=== PATIENT | female | born 1940 | race Caucasian/White ===

== ENCOUNTER 2017-06-27 10:23 | Inpatient (IN) ==
[2017-06-27 11:42] LABS: Basophils % 0.2 % (0.0-0.8); Hemoglobin 14.5 GM/DL (12.0-16.0); Immature Granulocytes % 1.1 %; Lymphocytes # 1.2 10*3/uL (1.4-4.0); Lymphocytes % 6.8 % (21.3-54.2); Mean Corpuscular HGB Conc 33.7 GM/DL (32-36); Mean Corpuscular Hemoglobin 31 PG (27-34); Mean Corpuscular Volume 91.5 FL (87-102); Mean Platelet Volume 10.5 FL (9.6-12.0); Monocytes # 0.9 10*3/uL (0.11-0.8); Monocytes % 5.2 % (1.7-12.7); Neutrophils # 15.1 10*3/uL (1.4-7.4); Neutrophils % 86.7 % (38.7-73.9); Platelet Count 194 T/CUMM (130-400); Red Cell Distribution Width 13.2 % (9.3-17.3); White Blood Count 17.5 T/CUMM (4-12)
[2017-06-27 11:48] LABS: Apearance,Urine CLEAR (Clear); Bacteria,Urine Occasional /HPF (Few); Bilirubin,Urine Negative (Negative); Blood, Urine Negative (Negative); Glucose,Urine (UA) Negative (Negative); Ketones,Urine Negative (Negative); Mucus,Urine Occasional /LPF (Occasional); Nitrite,Urine Negative (Negative); Protein,Urine 30 MG/DL; RBC,Urine 2 /HPF (0-4); Squamous Epithelial Cell,Urine Occasional /HPF (0-10); Urine Color Yellow (Yellow); Urine Specific Gravity 1.016 (1.001-1.035); WBC,Urine <1 /HPF (0-6)
[2017-06-27 11:53] LABS: Albumin 3.5 G/DL (3.4-5.0); Bilirubin,Total 1.1 MG/DL (0.2-1.0); Calcium 9.1 MG/DL (8.5-10.1); Potassium 4.2 MMOL/L (3.5-5.1); Total Protein 7.7 G/DL (6.4-8.3)
--- NOTE | 2017-06-27 12:03 | CT Report ---
CT head/brain wo con Indication: Mental status changes Comparison: None Technique: Multiple axial tomographic images of the brain were obtained without the use of intravenous contrast. Findings: Midline structures are nondisplaced. There is no convincing evidence of acute intracranial hemorrhage . Moderate global volume loss present. Mild periventricular and subcortical hypoattenuation noted which is nonspecific but consistent with chronic microvascular ischemic change. Demyelinating process and vasculitis less likely considerations. Atherosclerotic calcifications demonstrated. The visualized paranasal sinuses and bilateral mastoid air cells are predominantly clear. IMPRESSION: No acute intracranial abnormality demonstrated. The CT exam was performed using one or more of the following dose reduction techniques: Automated exposure control, adjustment of the mA and/or kV according to patient size, or use of iterative reconstruction technique. PROCEDURE INTERPRETED AT [facility] DEPARTMENT OF RADIOLOGY Final Report Signed by: Dr William Padilla
--- NOTE | 2017-06-27 12:07 | EKG Report ---
Stationary ECG Study [facility] ER Test Date: 06/27/2017 12:05:17 PM Pat Name: DEBRA CELAYA Department: Room: Gender: F Sod Farmer: : 1940 Requested by: Tristan Aguiar Order Number: [id number] Reading MD: LENNY RUSSELL Intervals [place] Rate: 74 P: 999 NC: 0 QRS: 67 QRSD: 72 T: -3 QT: 354 QTc: 382 Interpretive Statements ATRIAL FIBRILLATION WITH ABERRANT CONDUCTION OR VENTRICULAR PREMATURE COMPLEXES LOW QRS VOLTAGE IN PRECORDIAL LEADS Electronically Signed On 06-27-17 13:13:59 CDT by LENNY RUSSELL [email or web address]
--- NOTE | 2017-06-27 12:14 | XRay Report ---
XR chest 1V portable Indication: Altered mental status Comparison: Chest x-ray dated January 11, 2014 Technique: Single frontal view of the chest. Findings: The cardiomediastinal silhouette is stable in configuration. Chronic change of the lungs without focal consolidation, pleural effusion, or pneumothorax. Visualized osseous and surrounding soft tissue structures appear grossly unchanged. IMPRESSION: Stable chest x-ray without acute cardiopulmonary process demonstrated. PROCEDURE INTERPRETED AT [facility] DEPARTMENT OF RADIOLOGY Final Report Signed by: Dr William Padilla
[2017-06-27 13:13] LABS: Allen Test Positive; Pt O2 Delivery Device Room Air
[2017-06-27 13:14] LABS: ABG Base Excess 0.9 MMOL/L (-2.5-2.5); ABG HCO3 25.1 MMOL/L (20-26); ABG Oxygen Saturation 92.1 % (95-100); ABG PCO2 31.4 MM HG (35-48); ABG PH 7.482 (7.35-7.45); ABG PO2 61.3 MM HG (80-95); ABG TCO2 20.4 MMOL/L (23-27)
[2017-06-27 14:05] LABS: Barbiturates Screen,Urine Negative (Negative); Benzodiazepines Screen,Urine Positive (Negative); Cannabinoid Screen,Urine Negative (Negative); Opiate Screen,Urine Negative (Negative); Phencyclidine Screen,Urine Negative (Negative)
[2017-06-27] MEDS ORDERED: VANCOMYCIN INJ 1,000 MG in SODIUM CHLORIDE 0.9% 250 ML IV STA (14:46)
--- NOTE | 2017-06-27 14:51 | Emergency Department Note ---
Rojelio Martell Manpreet, am scribing for, and in the presence of, Tristan Aguiar Jr., MD 11:36. Stefania Martell Marvin Jr., MD, personally performed the services described in this documentation, ascribed by Ruben Serrato in my presence, and it is both accurate and complete 451 . Arrival - Arrival Chief Complaint: Altered Mental Status Stated Complaint: fever ED Nursing Triage Note: Altered mental status and fever - family states that she has a HX of dementia - max temp 103 last night - Mode of Arrival: Wheelchair Limitations: No Limitations Source: Significant other () - History of Present Illness HPI Narrative: Pt is a 76 y/o female, with PMHx of HTN, dementia, and GERD, who presents to the ED with CC of fever and AMS. Pt had recorded a temperature of 103 F last night and the states the pt's mental status is worse than her baseline. Pt is also lethargic and coughing according to the . Pt has had issues with fever for the past 2 to 3 months and has been seeing Dr. Sorensen, who is her PCP. Her fever has been steady but worsen yesterday and last night. Pt has been gasping according to the . Pt had a bruise on her left leg that occurred last night and the states she did not hit anything. No other pains/ complaints reported to the ED. Onset (ago): day(s) Consistency: constant Severity: moderate Severity scale (1-10): 3 Date of Last Menstrual Period: hyster Allergies/Adverse Reactions: Allergies Allergy/AdvReac Type Severity Reaction Status Date / Time No Known Allergies Allergy Verified 07/24/15 17:00 Home Medications: Home Medications Medication Instructions Recorded Confirmed Type Atorvastatin [Lipitor] 20 mg PO DAILY 11/24/15 11/28/15 History Calcium Carbonate/Vitamin D3 1 tablet PO DAILY 11/24/15 11/28/15 History [Calcium 250+D Tablet] Memantine HCl [Namenda XR] 28 mg PO DAILY 11/24/15 11/28/15 History Metoprolol Tartrate 25 mg PO DAILY 11/24/15 11/28/15 History Omeprazole 1 tablet PO DAILY 11/24/15 11/28/15 History Oxybutynin Xl [Ditropan Xl] 10 mg PO DAILY 11/24/15 11/28/15 History Gabapentin Cap/Tab [Neurontin 200 mg PO BID@0900,1600 #120 12/08/15 Rx Cap/Tab] capsule Gabapentin Cap/Tab [Neurontin 300 mg PO BEDTIME #30 capsule 12/08/15 Rx Cap/Tab] Lisinopril [Prinivil] 10 mg PO BEDTIME #30 tablet 12/08/15 Rx QUEtiapine [SEROquel] 50 mg PO BEDTIME #60 tablet 12/08/15 Rx Zaleplon [Sonata] 5 mg PO BEDTIME PRN #30 capsule 12/08/15 Rx Review of System - Review of System 12 point system: reviewed and no additional remarkable complaints except as stated - Review of System Constitutional: Present: fever, other (Lethargic). Absent: chills, diaphoresis Head/Ears/Nose/Throat: Absent: sore throat Respiratory: Present: cough, respiratory distress. Absent: wheezing Cardiovascular: Absent: chest pain Gastrointestinal: Absent: abdominal pain, nausea, vomiting, diarrhea Genitourinary female: Absent: dysuria Musculoskeletal: Absent: back pain, neck pain Skin: Present: other (Warm) Neurological: Present: confusion. Absent: headache, weakness, numbness, paresthesias Medical,Surgical,& Family Hx - Medical History Cardio: History of: Cardiac Dysrhythmia, Hypertension, Cardiovascular Problems ( HX OF AFIB) No history of: Aneurysm, Cerebrovascular Disease, Congenital Heart Disease, CHF, CAD, [place], Pacemaker, PVD, Valvular Heart Disease Psychological: History of: Anxiety Disorders, Behavior Problems (highly anxious or restless unable to sit still or hyperactive), Depression, Psychiatric/ Substance Abuse Tx, Violent Behavior (combative behavior toward others.), Psychiatric Problems (depressed mood aeb frequent crying spells and sleep disturbance) No history of: ADHD, Bipolar Disorder, Previous Suicide Attempt, Schizophrenia Neurology: History of: Dementia, Vertigo No history of: Brain Aneurysm, Cerebral Hemorrhage, Cerebrovascular Accident , Cerebral Palsy, Migraine, Multiple Sclerosis, Parkinson's Disease, Peripheral Neuropathy, Seizures, TIA, Neurologocal Cancer HEENT: History of: Eye Problem No history of: Ear Problem, Dental Problems, Glaucoma, Oral Cancer, HEENT Problems Endocrine: No history of: Adrenal Disease, Diabetes Mellitus (IDDM), Diabetes Mellitus ( NIDDM), Dyslipidemia, Thyroid Disorder, Endocrine Cancer, Endocrine Problems Rheumatology: No history of;: Fibromyalgia, Myasthenia Gravis, Psoriasis, Rheumatoid Arthritis, Sjogrens, Systemic Lupus Erythematosus, Rheumatological Problems Respiratory: No history of: Asthma, Bronchitis, COPD, Intubation, Obstructive Sleep Apnea , Pulmonary Embolism, Pulmonary Hypertension, Pneumonia, Lung Cancer, Respiratory Problems Renal: No history of: Renal (Kidney) Cancer, Dialysis, Renal Failure, Renal Problems Genitourinary: History of: Kidney Stones No history of: Bladder Problem, Recurring Urinary Tract Infections, Genitourinary Cancer, Problems Gastrointestinal: History of: GERD, Hemorrhoids No history of: Bowel Obstruction, Clostridium Difficile, Crohn's Disease, Diverticulitis/ Diverticulosis, Esophageal Varices, Gastrointestinal Bleed, Hematochezia, Hepatitis, Liver Problems, Pancreatitis, Polyps, Ulcerative Colitis, Gastrointestinal Cancer, GI Problems Musculoskeletal: History of: Back/Neck Problems, Degenerative Disk Disease, Herniated Disk, Osteoporosis, Musculoskeletal Problems No history of: Amputation, Musculoskeletal Cancer Hematology: No history of: Anemia, Blood Transfusion Reaction, Bleeding Problems, Clotting Problems, Sickle Cell Disease, Hematologic Cancer, Blood Disorders Reproductive: No history of: Abnormal Pap Smear, Breast Cancer, Endometriosis, Ectopic , Ovarian Cysts, Complication, Sexually Transmitted Disorders , Reproductive Cancer, Reproductive Problems Other: No history of: Anesthesia Reactions, Anaphylaxis, Cancer, Eczema, HIV, Malignant Hyperthermia, MRSA, Vancomycin-Resistant Enterococci, Skin Problems, Miscellaneous Medical Problems - Surgical History Cardiac Surgeries: Patient Denies: Femoral-Popliteal Bypass Graft, Cardiac Catheterization, Cardiac Surgery, Carotid Endarterectomy, Internal Defibrillator, Vascular Access Devices Thoracic Surgeries: Patient denies;: Kidney (Renal Surgery), Lithotripsy, Nephrectomy, Organ Transplant, Lobectomy Neurologic Surgeries: Patient denies: Brain Aneurysm, Cerebral Hemorrhage, Neurologic Surgery HEENT Surgeries: Surgical HX of: Eye Surgery (cataract removal) Patient denies: Carotid Endarterectomy, Thyroid Surgery, Tonsilectomy & Adenoidectomy Abdominal Surgeries: Surgical HX of: Cholecystectomy Patient denies: Abdominal Surgery, Appendectomy, Colonoscopy, Gastric Bypass Surgery, EGD, Hernia Repair, Splenectomy Reproductive Surgeries: Surgical HX of;: Gynecologic Surgery, Hysterectomy Patient denies;: Breast Surgery, Section, Cystoscopy, Dilation and Curettage, Genitourinary Surgery, Tubal Ligation Orthopedic Surgeries: Surgical HX of;: Orthopedic Surgery (back surgery), Spinal Surgery Patient denies;: Implanted Devices, Total Hip Replacement, Total Knee Replacement - Family History Family History: Reports;: Family Cancer (maternal grandfather), Family Heart Disease (father (36 years old)) Denies;: Family Anesthesia Reaction, Family Diabetes, Family Hypertension, Family Psychiatric Problems, Family Stroke - Social History Smoking Status: Smoker, status unknown Frequency of Alcohol Use: None Type of Drug Use: None Exam Physical Examination: General: Well-developed well-nourished, no apparent distress. Patient anxious Head: Normocephalic, atraumatic. Eyes: PERRLA, EOMI. Nose: No obvious acute deformities or discharge. Mouth: No obvious acute injury. Neck: Full range of motion without obvious pain. No midline tender to palpation. Lymphatic: no significant lymphadenopathy noted. Lungs: Clear to auscultation bilaterally, normal and equal air movement bilaterally, no obvious rales or wheezing. Heart: regular rate and rhythm, no obvious mummers. Abdomen: Soft nontender, nondistended, normal active bowel sounds. Skin: Redness, possible early bruising noted on bilateral anterior lower legs. Left worse than right. Musculoskeletal: No gross deformities. Neurological: No focal findings, cranial nerves II through XII grossly normal. Psychiatric: Anxious Vital Signs: Vital Signs Temperature 101.9 F H 06/27/17 10:35 Pulse Rate 80 06/27/17 10:35 Respiratory Rate 20 06/27/17 10:35 Blood Pressure 122/70 06/27/17 10:35 O2 Sat by Pulse Oximetry 94 L 06/27/17 10:35 Course Course Narrative: Differential diagnosis, sepsis, urinary tract infection, pneumonia, says patient is DNR. Her mental status and fever is much worse than her baseline. - Reevaluation(s) Reevaluation #1: Unchanged, states patient is DNR, I am concerned about the fever and elevated white count without clear obvious reason for an infection. She had an epidural injection for pain 3 days ago which is of particular concern. Will discuss with the hospitalist for admission. Time: 14:45 Results - Labs CBC & BMP: 06/27/17 11:03 06/27/17 11:03 Lab Results: I have reviewed the patients labs Labs: Laboratory Tests 06/27/17 06/27/17 06/27/17 11:03 11:03 11:03 WBC 17.5 H RBC 4.70 Hgb 14.5 Hct 43.0 MCV 91.5 MCH 31 MCHC 33.7 RDW 13.2 Plt Count 194 MPV 10.5 Neut % (Auto) 86.7 H Lymph % (Auto) 6.8 L [place] % (Auto) 5.2 Eos % (Auto) 0.0 Baso % (Auto) 0.2 Neut # (Auto) 15.1 H Lymph # (Auto) 1.2 L [place] # (Auto) 0.9 H Eos # (Auto) 0.0 Baso # (Auto) 0.0 Immature Gran % 1.1 Nucleated RBC % 0.0 Immature Gran # 0.20 Nucleated RBCs # 0.00 Immature Plt Fraction 0.0 Sodium 136 Potassium 4.2 Chloride 103 Carbon Dioxide 26 Anion Gap 11.2 BUN 18 Creatinine 0.90 GFR Calculation 62 BUN/Creatinine Ratio 20.00 Glucose 97 POC Glucose Calculated Osmolality 273.0 Calcium 9.1 Total Bilirubin 1.10 H AST 33 ALT 18 Alkaline Phosphatase 117 Total Protein 7.7 Albumin 3.5 Globulin 4.2 H Albumin/Globulin Ratio 0.8 L Urine Color Yellow Urine Appearance Clear Urine pH 5.0 Ur Specific [place] 1.016 Urine Protein 30 Urine Glucose (UA) Negative Urine Ketones Negative Urine Blood Negative Urine Nitrate Negative Urine Bilirubin Negative Urine Urobilinogen 2.0 H Urine Leukocytes Negative Urine RBC 2 Urine WBC <1 Ur Squamous Epith Cells Occasional Urine Bacteria Occasional Urine Mucus Occasional Ur Culture Indicated? Not indicated Laboratory Tests 06/27/17 11:51 POC Glucose 89 Laboratory Tests 06/27/17 13:01 ABG pH 7.482 H ABG pCO2 31.4 L ABG pO2 61.3 L ABG HCO3 25.1 ABG Total CO2 20.4 L ABG O2 Saturation 92.1 L ABG Base Excess 0.9 FiO2 21.00 - EKG EKG results: interpreted by ERMD (Poor quality EKG, heart rate 74, narrow complex QRS complexes, no obvious P waves with irregular R to R interval's. Consistent with atrial fibrillation that is rate controlled.) - Diagnostic Findings Procedure: Chest x-ray: report reviewed by me, image reviewed by me (Stable chest x-ray without acute cardiopulmonary process demonstrated.), CT: report reviewed by me, image reviewed by me (CT head/brain w/o con: No acute intracranial abnormality demonstrated.) Disposition Clinical Impression: Altered mental status, Febrile illness, Status post epidural steroid injection Case discussed with: patient, patient's family Disposition: Still a Patient Condition: Stable Time of Disposition: 14:44
[2017-06-27] MEDS ORDERED: VANCOMYCIN 1,000 MG VIAL ONE ×2 (15:05→15:15)
[2017-06-27] MEDS ORDERED: SODIUM CHLORIDE 0.9% 1,000 ML IV ONE (15:46)
--- NOTE | 2017-06-27 15:56 | Inventional Radiology Consult ---
Assessment and Plan - Time spent with patient Time spent with patient: Less than 30 minutes (1) Mental status change Problem details: fever, leukocytosis and recent spine intervention are concerning for meningitis Status: Chronic Assessment and plan: lumbar puncture planned for today Current Visit: No IR Consult - Data of Consult Patient: new to practice Consult date: 06/27/17 Requesting Physician: Sandra Jaime - Consult Narrative Reason for consult: febrile with leukocytosis and confusion History of present illness: Favian is a 76 year old F Admitted with significantly worsening confusion over the past 24 hours. Patient is also febrile. No reported headache although the patient does have some dementia and confusion at baseline. Patient caregiver/ reports that she is significantly worsened in the last 24 hours. Patient also has a history of restless leg syndrome and does not do activities of daily living without assistance. No history of anticoagulation use or aspirin. Request is for lumbar puncture for further evaluation. - Home Medications and Allergies Home Medications: Home Medications Medication Instructions Recorded Confirmed Type Atorvastatin [Lipitor] 20 mg PO DAILY 11/24/15 11/28/15 History Calcium Carbonate/Vitamin D3 1 tablet PO DAILY 11/24/15 11/28/15 History [Calcium 250+D Tablet] Memantine HCl [Namenda XR] 28 mg PO DAILY 11/24/15 11/28/15 History Metoprolol Tartrate 25 mg PO DAILY 11/24/15 11/28/15 History Omeprazole 1 tablet PO DAILY 11/24/15 11/28/15 History Oxybutynin Xl [Ditropan Xl] 10 mg PO DAILY 11/24/15 11/28/15 History Gabapentin Cap/Tab [Neurontin 200 mg PO BID@0900,1600 #120 12/08/15 Rx Cap/Tab] capsule Gabapentin Cap/Tab [Neurontin 300 mg PO BEDTIME #30 capsule 12/08/15 Rx Cap/Tab] Lisinopril [Prinivil] 10 mg PO BEDTIME #30 tablet 12/08/15 Rx QUEtiapine [SEROquel] 50 mg PO BEDTIME #60 tablet 12/08/15 Rx Zaleplon [Sonata] 5 mg PO BEDTIME PRN #30 capsule 12/08/15 Rx Allergies/Adverse Reactions: Allergies Allergy/AdvReac Type Severity Reaction Status Date / Time No Known Allergies Allergy Verified 07/24/15 17:00 ROS unobtainable: due to mental status, due to dementia, other (some hx obtained from ) Medical,Surgical,& Family Hx - Medical History Cardio: History of: Cardiac Dysrhythmia, Hypertension, Cardiovascular Problems ( HX OF AFIB) No history of: Aneurysm, Cerebrovascular Disease, Congenital Heart Disease, CHF, CAD, [place], Pacemaker, PVD, Valvular Heart Disease Psychological: History of: Anxiety Disorders, Behavior Problems (highly anxious or restless unable to sit still or hyperactive), Depression, Psychiatric/ Substance Abuse Tx, Violent Behavior (combative behavior toward others.), Psychiatric Problems (depressed mood aeb frequent crying spells and sleep disturbance) No history of: ADHD, Bipolar Disorder, Previous Suicide Attempt, Schizophrenia Neurology: History of: Dementia, Vertigo No history of: Brain Aneurysm, Cerebral Hemorrhage, Cerebrovascular Accident , Cerebral Palsy, Migraine, Multiple Sclerosis, Parkinson's Disease, Peripheral Neuropathy, Seizures, TIA, Neurologocal Cancer HEENT: History of: Eye Problem No history of: Ear Problem, Dental Problems, Glaucoma, Oral Cancer, HEENT Problems Endocrine: No history of: Adrenal Disease, Diabetes Mellitus (IDDM), Diabetes Mellitus ( NIDDM), Dyslipidemia, Thyroid Disorder, Endocrine Cancer, Endocrine Problems Rheumatology: No history of;: Fibromyalgia, Myasthenia Gravis, Psoriasis, Rheumatoid Arthritis, Sjogrens, Systemic Lupus Erythematosus, Rheumatological Problems Respiratory: No history of: Asthma, Bronchitis, COPD, Intubation, Obstructive Sleep Apnea , Pulmonary Embolism, Pulmonary Hypertension, Pneumonia, Lung Cancer, Respiratory Problems Renal: No history of: Renal (Kidney) Cancer, Dialysis, Renal Failure, Renal Problems Genitourinary: History of: Kidney Stones No history of: Bladder Problem, Recurring Urinary Tract Infections, Genitourinary Cancer, Problems Gastrointestinal: History of: GERD, Hemorrhoids No history of: Bowel Obstruction, Clostridium Difficile, Crohn's Disease, Diverticulitis/ Diverticulosis, Esophageal Varices, Gastrointestinal Bleed, Hematochezia, Hepatitis, Liver Problems, Pancreatitis, Polyps, Ulcerative Colitis, Gastrointestinal Cancer, GI Problems Musculoskeletal: History of: Back/Neck Problems, Degenerative Disk Disease, Herniated Disk, Osteoporosis, Musculoskeletal Problems No history of: Amputation, Musculoskeletal Cancer Hematology: No history of: Anemia, Blood Transfusion Reaction, Bleeding Problems, Clotting Problems, Sickle Cell Disease, Hematologic Cancer, Blood Disorders Reproductive: No history of: Abnormal Pap Smear, Breast Cancer, Endometriosis, Ectopic , Ovarian Cysts, Complication, Sexually Transmitted Disorders , Reproductive Cancer, Reproductive Problems Other: No history of: Anesthesia Reactions, Anaphylaxis, Cancer, Eczema, HIV, Malignant Hyperthermia, MRSA, Vancomycin-Resistant Enterococci, Skin Problems, Miscellaneous Medical Problems - Surgical History Cardiac Surgeries: Patient Denies: Femoral-Popliteal Bypass Graft, Cardiac Catheterization, Cardiac Surgery, Carotid Endarterectomy, Internal Defibrillator, Vascular Access Devices Thoracic Surgeries: Patient denies;: Kidney (Renal Surgery), Lithotripsy, Nephrectomy, Organ Transplant, Lobectomy Neurologic Surgeries: Patient denies: Brain Aneurysm, Cerebral Hemorrhage, Neurologic Surgery HEENT Surgeries: Surgical HX of: Eye Surgery (cataract removal) Patient denies: Carotid Endarterectomy, Thyroid Surgery, Tonsilectomy & Adenoidectomy Abdominal Surgeries: Surgical HX of: Cholecystectomy Patient denies: Abdominal Surgery, Appendectomy, Colonoscopy, Gastric Bypass Surgery, EGD, Hernia Repair, Splenectomy Reproductive Surgeries: Surgical HX of;: Gynecologic Surgery, Hysterectomy Patient denies;: Breast Surgery, Section, Cystoscopy, Dilation and Curettage, Genitourinary Surgery, Tubal Ligation Orthopedic Surgeries: Surgical HX of;: Orthopedic Surgery (back surgery), Spinal Surgery Patient denies;: Implanted Devices, Total Hip Replacement, Total Knee Replacement - Family History Family History: Reports;: Family Cancer (maternal grandfather), Family Heart Disease (father (36 years old)) Denies;: Family Anesthesia Reaction, Family Diabetes, Family Hypertension, Family Psychiatric Problems, Family Stroke - Social History Smoking Status: Smoker, status unknown Frequency of Alcohol Use: None Type of Drug Use: None Exam - Labs CBC & BMP: 06/27/17 11:03 06/27/17 11:03 Lab Results: I have reviewed the past 24 hour labs Image Studies: CT head negative - Constitutional Vitals: Period Temp Pulse Resp BP Sys/[place] Pulse Ox Last 24 Hr 101.9 F 80 20 122/70 94 General appearance: normal weight - Eye Eye exam: Present: EOMI - Respiratory Respiratory exam: Present: clear to auscultation bilaterally - Cardiovascular Cardiovascular exam: Present: regular rate and rhythm - Neurological Exam Neurological exam: Present: alert, altered, other (restless legs throughout interview) - Psychiatric Psychiatric exam: Present: agitated - Skin Skin exam: Present: normal color, dry
[2017-06-27] MEDS ORDERED: AMPICILLIN INJ 2,000 MG in SODIUM CHLORIDE 0.9% 100 ML IV STA (15:58)
[2017-06-27] MEDS ORDERED: VANCOMYCIN INJ 1,000 MG in SODIUM CHLORIDE 0.9% 250 ML IV SCH (16:00)
--- NOTE | 2017-06-27 16:05 | Hospitalist History & Physical ---
<Sandra Jaime Maura - Last Filed: 06/27/17 16:37> Assessment and Plan (1) Altered mental status Status: Acute Assessment and plan: Fever elevated white count and confusion may be secondary to meningitis. Repeat recent spinal injection. Spinal tap treat for meningitis with vancomycin , Rocephin, ampicillin Current Visit: Yes (2) Fever Status: Acute Assessment and plan: see AMS, no evidence of pneumonia or uti, blood cx pending. Cont vanco, amp and rocephin Current Visit: Yes (3) Septic shock Status: Acute Assessment and plan: Fluids bolus and stat lactic acid Current Visit: Yes (4) Shortness of breath Status: Acute Assessment and plan: chest ct and venous dopplers Current Visit: Yes (5) Leukocytosis Status: Acute Assessment and plan: secondary to steroids injection or infection, cover for infection see above Current Visit: Yes (6) Neuroleptic malignant syndrome Status: Acute Assessment and plan: on seroquel has many of the symptoms, Notified Dr. Treviño asking him to see her urgently for an opinion Current Visit: Yes (7) Dementia, Alzheimer's, with behavior disturbance Status: Acute Current Visit: No (8) Status post epidural steroid injection Status: Acute Current Visit: Yes History of Present Illness Chief complaint: fever and confusion History of present illness: Ms. Ballesteros is a 76 year old female with PMHx of HTN, dementia, and GERD, who presents to the ED with CC of fever and AMS. Pt had recorded a temperature of 103 F last night and the states the pt's mental status is worse than her baseline. WBC is 17 and she had an epidural injection on Friday by Dr Lora. Dr. Lora reports confused when he saw her but was not running fever and didnt look ill. Patient sees Dr. Garner. Given vanco in ER. I ordered fluids and a lactic acid with a stat spinal tap. Pt is also lethargic and coughing according to the . Oxygen is low, may be at risk for PE. Will get venous dopplers. Spoke with Dr. Castorena for stat spinal tap under sedation. able to answer some questions. Has rash on right leg but left leg warm and red with purpura due to recent trauma. Pt has restless leg but she has severe dyskinesia and is constantly moving. May be side affects from seroquel. Consider neuroleptic malignant syndrome. Has had multiple kyphoplasties in the past. Home Medications Medication Instructions Recorded Confirmed Type Atorvastatin [Lipitor] 20 mg PO DAILY 11/24/15 06/27/17 History Metoprolol Tartrate 25 mg PO DAILY 11/24/15 06/27/17 History Omeprazole 1 tablet PO DAILY 11/24/15 06/27/17 History Zaleplon [Sonata] 5 mg PO BEDTIME PRN #30 capsule 12/08/15 06/27/17 Rx Donepezil [Aricept] 10 mg PO DAILY 06/27/17 06/27/17 History Gabapentin Cap/Tab [Neurontin 400 mg PO TID 06/27/17 06/27/17 History Cap/Tab] Lisinopril 5 mg PO DAILY 06/27/17 06/27/17 History Loratadine Tab [Claritin Tab] 10 mg PO DAILY 06/27/17 06/27/17 History Oxybutynin Chloride [Oxybutynin 15 mg PO DAILY 06/27/17 06/27/17 History Chloride ER] Quetiapine Fumarate [Seroquel] 50 mg PO DAILY 06/27/17 06/27/17 History Allergies Allergy/AdvReac Type Severity Reaction Status Date / Time No Known Allergies Allergy Verified 07/24/15 17:00 Medical,Surgical,& Family Hx - Medical History Cardio: History of: Cardiac Dysrhythmia, Hypertension, Cardiovascular Problems ( HX OF AFIB) No history of: Aneurysm, Cerebrovascular Disease, Congenital Heart Disease, CHF, CAD, [place], Pacemaker, PVD, Valvular Heart Disease Psychological: History of: Anxiety Disorders, Behavior Problems (highly anxious or restless unable to sit still or hyperactive), Depression, Psychiatric/ Substance Abuse Tx, Violent Behavior (combative behavior toward others.), Psychiatric Problems (depressed mood aeb frequent crying spells and sleep disturbance) No history of: ADHD, Bipolar Disorder, Previous Suicide Attempt, Schizophrenia Neurology: History of: Dementia, Vertigo No history of: Brain Aneurysm, Cerebral Hemorrhage, Cerebrovascular Accident , Cerebral Palsy, Migraine, Multiple Sclerosis, Parkinson's Disease, Peripheral Neuropathy, Seizures, TIA, Neurologocal Cancer HEENT: History of: Eye Problem No history of: Ear Problem, Dental Problems, Glaucoma, Oral Cancer, HEENT Problems Endocrine: No history of: Adrenal Disease, Diabetes Mellitus (IDDM), Diabetes Mellitus ( NIDDM), Dyslipidemia, Thyroid Disorder, Endocrine Cancer, Endocrine Problems Rheumatology: No history of;: Fibromyalgia, Myasthenia Gravis, Psoriasis, Rheumatoid Arthritis, Sjogrens, Systemic Lupus Erythematosus, Rheumatological Problems Respiratory: No history of: Asthma, Bronchitis, COPD, Intubation, Obstructive Sleep Apnea , Pulmonary Embolism, Pulmonary Hypertension, Pneumonia, Lung Cancer, Respiratory Problems Renal: No history of: Renal (Kidney) Cancer, Dialysis, Renal Failure, Renal Problems Genitourinary: History of: Kidney Stones No history of: Bladder Problem, Recurring Urinary Tract Infections, Genitourinary Cancer, Problems Gastrointestinal: History of: GERD, Hemorrhoids No history of: Bowel Obstruction, Clostridium Difficile, Crohn's Disease, Diverticulitis/ Diverticulosis, Esophageal Varices, Gastrointestinal Bleed, Hematochezia, Hepatitis, Liver Problems, Pancreatitis, Polyps, Ulcerative Colitis, Gastrointestinal Cancer, GI Problems Musculoskeletal: History of: Back/Neck Problems, Degenerative Disk Disease, Herniated Disk, Osteoporosis, Musculoskeletal Problems No history of: Amputation, Musculoskeletal Cancer Hematology: No history of: Anemia, Blood Transfusion Reaction, Bleeding Problems, Clotting Problems, Sickle Cell Disease, Hematologic Cancer, Blood Disorders Reproductive: No history of: Abnormal Pap Smear, Breast Cancer, Endometriosis, Ectopic , Ovarian Cysts, Complication, Sexually Transmitted Disorders , Reproductive Cancer, Reproductive Problems Other: No history of: Anesthesia Reactions, Anaphylaxis, Cancer, Eczema, HIV, Malignant Hyperthermia, MRSA, Vancomycin-Resistant Enterococci, Skin Problems, Miscellaneous Medical Problems - Surgical History Cardiac Surgeries: Patient Denies: Femoral-Popliteal Bypass Graft, Cardiac Catheterization, Cardiac Surgery, Carotid Endarterectomy, Internal Defibrillator, Vascular Access Devices Thoracic Surgeries: Patient denies;: Kidney (Renal Surgery), Lithotripsy, Nephrectomy, Organ Transplant, Lobectomy Neurologic Surgeries: Patient denies: Brain Aneurysm, Cerebral Hemorrhage, Neurologic Surgery HEENT Surgeries: Surgical HX of: Eye Surgery (cataract removal) Patient denies: Carotid Endarterectomy, Thyroid Surgery, Tonsilectomy & Adenoidectomy Abdominal Surgeries: Surgical HX of: Cholecystectomy Patient denies: Abdominal Surgery, Appendectomy, Colonoscopy, Gastric Bypass Surgery, EGD, Hernia Repair, Splenectomy Reproductive Surgeries: Surgical HX of;: Gynecologic Surgery, Hysterectomy Patient denies;: Breast Surgery, Section, Cystoscopy, Dilation and Curettage, Genitourinary Surgery, Tubal Ligation Orthopedic Surgeries: Surgical HX of;: Orthopedic Surgery (back surgery), Spinal Surgery Patient denies;: Implanted Devices, Total Hip Replacement, Total Knee Replacement - Family History Family History: Reports;: Family Cancer (maternal grandfather), Family Heart Disease (father (36 years old)) Denies;: Family Anesthesia Reaction, Family Diabetes, Family Hypertension, Family Psychiatric Problems, Family Stroke - Social History Smoking Status: Former smoker Frequency of Alcohol Use: None Type of Drug Use: None Marital Status: Lives With:: Spouse Functional capacity: independent ambulation ROS unobtainable: due to mental status, due to delirium - Constitutional Constitutional: Present: fever(s). Absent: headache(s) - EENT Nose, mouth and throat: Absent: headache(s) - Neurological Neurological: Present: behavioral changes, confusion, other (dykinesia). Absent : focal weakness, headache(s), syncope - Psychiatric Psychiatric: Present: anxiety, confusion, depression. Absent: memory loss - Endocrine Endocrine: Present: fatigue, heat intolerance - Hematologic/Lymphatic Hematologic/Lymphatic: Present: easy bleeding, easy bruising Exam - Constitutional Vitals: Period Temp Pulse Resp BP Sys/Dawson Pulse Ox Last 24 Hr 101.9 F 80 20 122/70 94 General appearance: normal weight, severe distress - Head Head exam: Present: normal inspection, normocephalic - Eye Eye exam: Present: EOMI. Absent: scleral icterus Pupils: Present: ARIELLE, normal accommodation - Neck Neck exam: Absent: lymphadenopathy, thyromegaly - Respiratory Respiratory exam: Present: clear to auscultation bilaterally. Absent: rhonchi, wheezes - Cardiovascular Cardiovascular exam: Present: tachycardia - GI/Abdominal GI/Abdominal exam: Present: normal bowel sounds, soft. Absent: tenderness - Extremities Exam Extremities exam: Present: normal capillary refill, edema, other (bilateral LE erythema ) - Neurological Exam Neurological exam: Present: altered, motor sensory deficit (moving all extremities ) - Psychiatric Psychiatric exam: Present: depressed, flat affect - Skin Skin exam: Present: erythema, rash, urticaria Results - Labs CBC & BMP: 06/27/17 11:03 06/27/17 11:03 Lab Results: I have reviewed the past 24 hour labs - EKG EKG shows: atrial fibrillation - Diagnostic Findings Procedure: Chest x-ray: report reviewed by me (none ), CT: report reviewed by me (head volume loss ) <MoniqueAntoni - Last Filed: 06/27/17 18:40> - Constitutional Constitutional: Present: lethargy, weakness - EENT Eyes: Present: blurry vision. Absent: loss of vision Ears: Absent: decreased hearing - Cardiovascular Cardiovascular: Absent: chest pain at rest, chest pain with activity, diaphoresis, dyspnea, edema - Respiratory Respiratory: Absent: hemoptysis - Gastrointestinal Gastrointestinal: Present: constipation. Absent: change in bowel habits, coffee ground emesis, nausea, vomiting - Genitourinary Genitourinary: Absent: dysuria, hematuria Exam - Constitutional Vitals: Period Temp Pulse Resp BP Sys/Dawson Pulse Ox Last 24 Hr 99.8 F-101.9 F 67-97 16-29 122-145/50-85 92-100 Results - Labs CBC & BMP: 06/27/17 11:03 06/27/17 11:03
--- NOTE | 2017-06-27 16:39 | Post Interventional Procedure ---
Pre-op diagnosis: fever, confusion, leukocytosis Post-op diagnosis: same Procedure: Lumbar puncture Contrast: none Flouroscopy: less then 1 min Radiologist: Joshua Castorena Anesthesia: local Specimens: other Estimated blood loss: none Complications: none Condition: stable Description/Findings: opening pressure 21 cm H2O 10 mL clear colorless CSF removed Assessment and Plan - Time spent with patient Time spent with patient: Less than 30 minutes (1) Mental status change Problem details: fever, leukocytosis and recent spine intervention are concerning for meningitis Status: Chronic Assessment and plan: lumbar puncture planned for today Current Visit: No
--- NOTE | 2017-06-27 16:44 | Interventional Radiology Rpt ---
Procedure: IR lumbar puncture diagnostic Clinical history: 76-year-old female with confusion, fever and leukocytosis. Procedure: Informed consent was obtained prior to procedure. Formal timeout was performed. Maximum sterile barrier technique was employed. The patient was placed prone on the fluoroscopy table. The low back was prepped and draped in a sterile fashion. A midline lumbar puncture was then performed at the L3-L4 interspace using a 20-gauge spinal needle. Fluoroscopic guidance was used and a captured image documents the needle position. An opening pressure of 21 cm water was obtained. Subsequently, 10 milliliters of clear, colorless CSF was withdrawn and sent to laboratory. The spinal needle was removed and a bandage placed the puncture site. Fluoroscopy time: 0.9 minutes. Consultations: None. Impression: Technically successful diagnostic lumbar puncture as described. PROCEDURE INTERPRETED AT [facility] DEPARTMENT OF RADIOLOGY Final Report Signed by: Joshua Castorena
--- NOTE | 2017-06-27 16:52 | CT Report ---
CT chest PE study Indication: Shortness of breath. CT CHEST WITH CONTRAST, PE PROTOCOL DLP: 375 mGy*cm. One or more of the following dose reduction techniques was used: Automated exposure control, adjustment of the mA and/or kV according the patient size, or use of iterative reconstruction techniques. Comparison: None Technique: Axial CT images of the chest were obtained during the pulmonary arterial phase of contrast injection. Coronal reconstructions were provided. Omnipaque 350, 80 cc. Findings: No central, lobar or segmental pulmonary artery filling defects are shown. There is a small amount of methylmethacrylate cement within the right lower lobe pulmonary artery from prior vertebroplasty. Heart size is normal. Mild atheromatous disease noted. Aorta is normal in size without dissection. No mediastinal, axillary or hilar lymphadenopathy. Relatively large hiatal hernia is noted. Breathing motion artifact obscures pulmonary findings significantly. However, no consolidative mass or infiltrate is shown. There are some scarring or atelectasis of the left lung base. Pleural spaces are clear. Spondylitic changes thoracic spine noted. Limited views of the upper abdomen are grossly unremarkable. Impression: No evidence of PE. Hiatal hernia. PROCEDURE INTERPRETED AT [facility] DEPARTMENT OF RADIOLOGY Final Report Signed by: David Quezada M.D.
[2017-06-27 16:55] LABS: Glucose,CSF 54 MG/DL (40-70)
[2017-06-27 17:05] LABS: Appearance,CSF Clear; Red Blood Cell,CSF 17 C/CUMM; White Blood Cell,CSF 8 C/CUMM
--- NOTE | 2017-06-27 17:19 | Ultrasound Report ---
US venous doppler LE BI Indication: Leg swelling. BILATERAL LOWER EXTREMITY VENOUS ULTRASOUND Comparison: None Findings: Graded grayscale compression, color Doppler and pulsed Doppler ultrasound evaluation of the venous structures performed. Normal compressibility, augmentation and color saturation is present within bilateral common femoral, superficial femoral, popliteal and proximal greater saphenous veins. Impression: No evidence of DVT either lower extremity. PROCEDURE INTERPRETED AT [facility] DEPARTMENT OF RADIOLOGY Final Report Signed by: David Quezada M.D.
[2017-06-27] MEDS ORDERED: GABAPENTIN 100 MG CAPSULE PO SCH (17:42)
[2017-06-27] MEDS ORDERED: SODIUM CHLORIDE 0.9% 1,850 ML IV ONE (17:42)
[2017-06-27] MEDS ORDERED: ONDANSETRON 4 MG/2 ML VIAL IV PRN (17:42)
[2017-06-27] MEDS ORDERED: NOREPINEPHRINE 8 MG in SODIUM CHLORIDE 0.9% 242 ML IV SCH (17:42)
[2017-06-27] MEDS ORDERED: ACETAMINOPHEN 325 MG TABLET PO PRN (17:42)
[2017-06-27 18:27] LABS: Lymphocytes,CSF 82 %; Monocytes,CSF 14 %; Neutrophils,CSF 5 %
[2017-06-27 18:41] LABS: Magnesium 1.9 MG/DL (1.8-2.4)
[2017-06-27 18:50] LABS: Lactic Acid 2.2 MMOL/L (0.4-2.0)
[2017-06-27] MEDS: VANCOMYCIN INJ 1,000 MG in SODIUM CHLORIDE 0.9% 250 ML IV SCH (18:58)
[2017-06-27] MEDS: cefTRIAXone 2,000 MG in SODIUM CHLORIDE 0.9% 100 ML IV SCH (18:59)
[2017-06-27] MEDS ORDERED: ALBUTEROL/IPRATROPIUM 3 ML NEB RESP TX SCH (19:00)
[2017-06-27] MEDS: AMPICILLIN INJ 2,000 MG in SODIUM CHLORIDE 0.9% 100 ML IV SCH ×2 (19:27→21:51)
[2017-06-27] MEDS: SODIUM CHLORIDE 0.9% 1,000 ML IV SCH (20:08)
[2017-06-27] MEDS: LORazepam 2 MG/1 ML VIAL IV PRN (20:12)
[2017-06-27] MEDS: ALBUTEROL/IPRATROPIUM 3 ML NEB RESP TX SCH (20:18)
[2017-06-27] MEDS: ACYCLOVIR INJ 750 MG in SODIUM CHLORIDE 0.9% 250 ML IV SCH (20:51)
[2017-06-27] MEDS ORDERED: GABAPENTIN 300 MG CAPSULE PO SCH (21:00)
[2017-06-27] MEDS: HYDROmorphone 2 MG/1 ML VIAL IV PRN (22:16)
[2017-06-27] MEDS ORDERED: DILTIAZEM 100 MG VIAL.ADD IV ONE (22:44)
[2017-06-27] MEDS ORDERED: DILTIAZEM 50 MG/10 ML VIAL IV ONE ×2 (22:44→23:00)
[2017-06-27] MEDS ORDERED: SODIUM CHLORIDE 0.9% 500 ML IV ONE (23:02)
[2017-06-27] MEDS ORDERED: MAGNESIUM SULF RIDER 2 GM in PREMIX 1 EACH IV ONE (23:03)
[2017-06-27] MEDS: DILTIAZEM INJ 100 MG in SODIUM CHLORIDE 0.9% 100 ML IV SCH (23:05)
[2017-06-28] MEDS ORDERED: ACETAMINOPHEN 325 MG SUPP RECTAL PRN (00:14)
[2017-06-28] MEDS ORDERED: ACETAMINOPHEN 650 MG SUPP RECTAL PRN (00:22)
[2017-06-28] MEDS: LORazepam 2 MG/1 ML VIAL IV PRN ×5 (00:44→19:42)
[2017-06-28] MEDS: AMPICILLIN INJ 2,000 MG in SODIUM CHLORIDE 0.9% 100 ML IV SCH ×6 (01:23→22:24)
[2017-06-28] MEDS: SODIUM CHLORIDE 0.9% 1,000 ML IV SCH ×4 (03:47→21:48)
[2017-06-28] MEDS: ACYCLOVIR INJ 750 MG in SODIUM CHLORIDE 0.9% 250 ML IV SCH ×3 (04:00→20:16)
[2017-06-28] MEDS: cefTRIAXone 2,000 MG in SODIUM CHLORIDE 0.9% 100 ML IV SCH ×2 (05:34→18:36)
[2017-06-28 05:56] LABS: Basophils # 0.1 10*3/uL (0.0-0.2); Basophils % 0.3 % (0.0-0.8); Hematocrit 36.5 VOL% (35.7-47.0); Hemoglobin 11.8 GM/DL (12.0-16.0); Immature Granulocytes % 1.2 %; Immature Granulocytes Absolute 0.24 #; Lymphocytes # 1.2 10*3/uL (1.4-4.0); Lymphocytes % 5.9 % (21.3-54.2); Mean Corpuscular HGB Conc 32.3 GM/DL (32-36); Mean Corpuscular Hemoglobin 31 PG (27-34); Mean Corpuscular Volume 94.8 FL (87-102); Mean Platelet Volume 10.3 FL (9.6-12.0); Monocytes # 0.9 10*3/uL (0.11-0.8); Monocytes % 4.5 % (1.7-12.7); Neutrophils # 17.5 10*3/uL (1.4-7.4); Neutrophils % 88.1 % (38.7-73.9); Platelet Count 138 T/CUMM (130-400); Red Blood Count 3.85 MC/CUMM (3.8-5.5); Red Cell Distribution Width 13.7 % (9.3-17.3); White Blood Count 19.9 T/CUMM (4-12)
[2017-06-28] MEDS: VANCOMYCIN INJ 1,000 MG in SODIUM CHLORIDE 0.9% 250 ML IV SCH ×2 (06:08→18:11)
[2017-06-28 06:25] LABS: Calcium 7.5 MG/DL (8.5-10.1); Potassium 3.4 MMOL/L (3.5-5.1)
[2017-06-28 06:27] LABS: Hypochromasia Slight
[2017-06-28 06:28] LABS: Microcytosis Slight; Platelet Estimate Adequate
[2017-06-28] MEDS: HYDROmorphone 2 MG/1 ML VIAL IV PRN ×4 (06:29→20:30)
[2017-06-28] MEDS: ALBUTEROL/IPRATROPIUM 3 ML NEB RESP TX SCH ×3 (07:09→19:12)
[2017-06-28] MEDS: MEMANTINE 10 MG TABLET PO SCH ×2 (09:04→20:14)
[2017-06-28] MEDS: PANTOPRAZOLE 40 MG TABLET PO SCH (09:04)
[2017-06-28] MEDS: DILTIAZEM INJ 100 MG in SODIUM CHLORIDE 0.9% 100 ML IV SCH ×3 (12:48→23:41)
--- NOTE | 2017-06-28 13:47 | Neurology Consult Note ---
History of Present Illness History of present illness: Patient is unable to provide me any history. History basically obtained from the chart. Ms. Ballesteros is a 76 year old female with PMHx of HTN, dementia, and GERD, who presents to the ED with fever and change in mental state. Pt had recorded a temperature of 103 F last night and the reported that pt's mental status is worse than her baseline. she had an epidural injection on Friday by Dr Lora. Dr. Lora reports confused when he saw her but was not running fever and didnt look ill. Pt was also lethargic and coughing according to the . Patient underwent CT of the chest and venous Dopplers legs which are unremarkable for any pathology. A spinal tap was done which is unremarkable. Pt is quite restless and constantly moving. CPK level is 206, AST ALT levels are all within normal limits. No clear evidence of enemas either. No evidence of meningitis. Home Medications Medication Instructions Recorded Confirmed Type Atorvastatin [Lipitor] 20 mg PO DAILY 11/24/15 06/27/17 History Metoprolol Tartrate 25 mg PO DAILY 11/24/15 06/27/17 History Omeprazole 1 tablet PO DAILY 11/24/15 06/27/17 History Zaleplon [Sonata] 5 mg PO BEDTIME PRN #30 capsule 12/08/15 06/27/17 Rx Donepezil [Aricept] 10 mg PO DAILY 06/27/17 06/27/17 History Gabapentin Cap/Tab [Neurontin 400 mg PO TID 06/27/17 06/27/17 History Cap/Tab] Lisinopril 5 mg PO DAILY 06/27/17 06/27/17 History Loratadine Tab [Claritin Tab] 10 mg PO DAILY 06/27/17 06/27/17 History Oxybutynin Chloride [Oxybutynin 15 mg PO DAILY 06/27/17 06/27/17 History Chloride ER] Quetiapine Fumarate [Seroquel] 50 mg PO DAILY 06/27/17 06/27/17 History Allergies Allergy/AdvReac Type Severity Reaction Status Date / Time No Known Allergies Allergy Verified 07/24/15 17:00 ROS unobtainable: due to mental status Medical,Surgical,& Family Hx - Medical History Cardio: History of: Cardiac Dysrhythmia, Hypertension, Cardiovascular Problems ( HX OF AFIB) No history of: Aneurysm, Cerebrovascular Disease, Congenital Heart Disease, CHF, CAD, [place], Pacemaker, PVD, Valvular Heart Disease Psychological: History of: Anxiety Disorders, Behavior Problems (highly anxious or restless unable to sit still or hyperactive), Depression, Psychiatric/ Substance Abuse Tx, Violent Behavior (combative behavior toward others.), Psychiatric Problems (depressed mood aeb frequent crying spells and sleep disturbance) No history of: ADHD, Bipolar Disorder, Previous Suicide Attempt, Schizophrenia Neurology: History of: Dementia, Vertigo No history of: Brain Aneurysm, Cerebral Hemorrhage, Cerebrovascular Accident , Cerebral Palsy, Migraine, Multiple Sclerosis, Parkinson's Disease, Peripheral Neuropathy, Seizures, TIA, Neurologocal Cancer HEENT: History of: Eye Problem No history of: Ear Problem, Dental Problems, Glaucoma, Oral Cancer, HEENT Problems Endocrine: No history of: Adrenal Disease, Diabetes Mellitus (IDDM), Diabetes Mellitus ( NIDDM), Dyslipidemia, Thyroid Disorder, Endocrine Cancer, Endocrine Problems Rheumatology: No history of;: Fibromyalgia, Myasthenia Gravis, Psoriasis, Rheumatoid Arthritis, Sjogrens, Systemic Lupus Erythematosus, Rheumatological Problems Respiratory: No history of: Asthma, Bronchitis, COPD, Intubation, Obstructive Sleep Apnea , Pulmonary Embolism, Pulmonary Hypertension, Pneumonia, Lung Cancer, Respiratory Problems Renal: No history of: Renal (Kidney) Cancer, Dialysis, Renal Failure, Renal Problems Genitourinary: History of: Kidney Stones No history of: Bladder Problem, Recurring Urinary Tract Infections, Genitourinary Cancer, Problems Gastrointestinal: History of: GERD, Hemorrhoids No history of: Bowel Obstruction, Clostridium Difficile, Crohn's Disease, Diverticulitis/ Diverticulosis, Esophageal Varices, Gastrointestinal Bleed, Hematochezia, Hepatitis, Liver Problems, Pancreatitis, Polyps, Ulcerative Colitis, Gastrointestinal Cancer, GI Problems Musculoskeletal: History of: Back/Neck Problems, Degenerative Disk Disease, Herniated Disk, Osteoporosis, Musculoskeletal Problems No history of: Amputation, Musculoskeletal Cancer Hematology: No history of: Anemia, Blood Transfusion Reaction, Bleeding Problems, Clotting Problems, Sickle Cell Disease, Hematologic Cancer, Blood Disorders Reproductive: No history of: Abnormal Pap Smear, Breast Cancer, Endometriosis, Ectopic , Ovarian Cysts, Complication, Sexually Transmitted Disorders , Reproductive Cancer, Reproductive Problems Other: No history of: Anesthesia Reactions, Anaphylaxis, Cancer, Eczema, HIV, Malignant Hyperthermia, MRSA, Vancomycin-Resistant Enterococci, Skin Problems, Miscellaneous Medical Problems - Surgical History Cardiac Surgeries: Patient Denies: Femoral-Popliteal Bypass Graft, Cardiac Catheterization, Cardiac Surgery, Carotid Endarterectomy, Internal Defibrillator, Vascular Access Devices Thoracic Surgeries: Patient denies;: Kidney (Renal Surgery), Lithotripsy, Nephrectomy, Organ Transplant, Lobectomy Neurologic Surgeries: Patient denies: Brain Aneurysm, Cerebral Hemorrhage, Neurologic Surgery HEENT Surgeries: Surgical HX of: Eye Surgery (cataract removal) Patient denies: Carotid Endarterectomy, Thyroid Surgery, Tonsilectomy & Adenoidectomy Abdominal Surgeries: Surgical HX of: Cholecystectomy Patient denies: Abdominal Surgery, Appendectomy, Colonoscopy, Gastric Bypass Surgery, EGD, Hernia Repair, Splenectomy Reproductive Surgeries: Surgical HX of;: Gynecologic Surgery, Hysterectomy Patient denies;: Breast Surgery, Section, Cystoscopy, Dilation and Curettage, Genitourinary Surgery, Tubal Ligation Orthopedic Surgeries: Surgical HX of;: Orthopedic Surgery (back surgery), Spinal Surgery Patient denies;: Implanted Devices, Total Hip Replacement, Total Knee Replacement - Family History Family History: Reports;: Family Cancer (maternal grandfather), Family Heart Disease (father (36 years old)) Denies;: Family Anesthesia Reaction, Family Diabetes, Family Hypertension, Family Psychiatric Problems, Family Stroke - Social History Smoking Status: Former smoker Frequency of Alcohol Use: None Type of Drug Use: None Exam - Constitutional Vitals: Period Temp Pulse Resp BP Sys/Dawson Pulse Ox Last 24 Hr 97.1 F-101.8 F 68-166 13-32 86-149/46-93 89-100 Exam: GENERAL: Patient is in no acute distress. NECK: Neck is quite stiff. There is no JVD. No carotid bruits present. No thyroid masses. CVS: First and second heart sounds are normal. There is no S3 present. Regular rate and rhythm. RESPIRATORY: Lungs are clear to auscultation without any rales or rhonchi. ABDOMEN: Soft and non-tender. Bowel sounds are present. There is no hepatosplenomegaly. EXT: There is no palpable edema. Peripheral pulses are present. Skin: No rashes Central Nervous system: General: Sleepy but arousable and very disoriented Speech: None Comprehension: Impaired Facial expressions: Normal Cranial Nerves: Pupils are sluggish. Doll's head eye movements are positive. No facial asymmetry is seen Motor: Lead pipe type rigidity in all 4 extremities along with neck Sensory: Cannot be assessed Reflexes: 1+ and symmetrical Cerebellar function: Cannot be assessed Toes: Upgoing bilaterally Gait: Cannot be assessed Results - Labs CBC & BMP: 06/28/17 05:11 06/28/17 05:11 Assessment and Plan (1) Mental status change Problem details: fever, leukocytosis and recent spine intervention are concerning for meningitis Status: Chronic Assessment and plan: Etiology not clear. No evidence of meningitis in the spinal tap. Lab data does not support MMSE either but cannot be excluded entirely. MRI of the brain without Trial of amantadine Recommend to stop acyclovir and Rocephin but defer this to PCP EEG Thank you for the consult Current Visit: No
[2017-06-28] MEDS: AMANTADINE 100 MG CAPSULE PO SCH (14:20)
--- NOTE | 2017-06-28 15:39 | Magnetic Resonance Report ---
MR head/brain wo con Indication: Altered mental status. MRI BRAIN WITHOUT CONTRAST Technique: Multiplanar noncontrast MR images of the brain were obtained. Comparison: None. Findings: No restricted diffusion. Motion artifact is significant throughout study. No gross areas of encephalomalacia are identified. No evidence of hemorrhage. Volume loss noted and there is patchy periventricular white matter T2 and FLAIR hyperintensity. Orbits are secured by motion. Visualized sinuses are grossly clear. Impression: Study limited by significant motion artifact. No acute pathology identified. Chronic generalized atrophy and changes of chronic small vessel ischemia. PROCEDURE INTERPRETED AT [facility] DEPARTMENT OF RADIOLOGY Final Report Signed by: David Quezada M.D.
--- NOTE | 2017-06-28 17:46 | Hospitalist Progress Note ---
Hospitalist: Subjective Interval history: 76 year old female with PMHx of HTN, dementia, and GERD, admitted with confusion and mental status change. Exam - Constitutional Vitals: Period Temp Pulse Resp BP Sys/Dawson Pulse Ox Last 24 Hr 97.1 F-101.8 F 84-166 13-32 86-154/46-101 89-98 Exam: GENERAL: no acute distress. NECK: Some neck stiffness CVS: S1-S2 audible ,regular rate and rhythm. RESPIRATORY: Lungs are clear to auscultation without any rales or rhonchi. ABDOMEN: Soft and non-tender. Positive bowel sounds EXT: No edema peripheral pulses are present. Skin: No rashes Central Nervous system: Disoriented Results - Labs CBC & BMP: 06/28/17 05:11 06/28/17 05:11 - Impressions Assessment and Plan (1) Altered mental status Status: Acute Assessment and plan: Workup in progress. Lumbar puncture and MRI brain were done. Appreciate neurology following Current Visit: Yes (2) Fever Status: Acute Assessment and plan: Cont antibiotics and follow-up cultures Current Visit: Yes (3) Dementia, Alzheimer's, with behavior disturbance Status: Acute Current Visit: No (4) Status post recent epidural steroid injection Status: Acute Current Visit: Yes
[2017-06-28] MEDS: ATORVASTATIN 20 MG TABLET PO SCH (20:14)
[2017-06-29] MEDS: AMPICILLIN INJ 2,000 MG in SODIUM CHLORIDE 0.9% 100 ML IV SCH ×6 (01:04→21:12)
[2017-06-29] MEDS: LORazepam 2 MG/1 ML VIAL IV PRN ×3 (02:07→19:32)
[2017-06-29] MEDS: HYDROmorphone 2 MG/1 ML VIAL IV PRN ×4 (03:42→22:45)
[2017-06-29] MEDS: ACYCLOVIR INJ 750 MG in SODIUM CHLORIDE 0.9% 250 ML IV SCH ×3 (04:00→20:06)
[2017-06-29] MEDS: SODIUM CHLORIDE 0.9% 1,000 ML IV SCH ×4 (04:09→21:12)
[2017-06-29] MEDS: DILTIAZEM INJ 100 MG in SODIUM CHLORIDE 0.9% 100 ML IV SCH ×2 (05:20→15:20)
[2017-06-29] MEDS: cefTRIAXone 2,000 MG in SODIUM CHLORIDE 0.9% 100 ML IV SCH ×2 (05:53→17:27)
[2017-06-29 06:33] LABS: Basophils % 0.1 % (0.0-0.8); Hematocrit 31.8 VOL% (35.7-47.0); Hemoglobin 10.5 GM/DL (12.0-16.0); Immature Granulocytes % 7.8 %; Lymphocytes # 0.6 10*3/uL (1.4-4.0); Lymphocytes % 3.5 % (21.3-54.2); Mean Corpuscular Hemoglobin 31 PG (27-34); Mean Corpuscular Volume 93.3 FL (87-102); Mean Platelet Volume 9.8 FL (9.6-12.0); Monocytes % 5.7 % (1.7-12.7); Neutrophils # 14.9 10*3/uL (1.4-7.4); Neutrophils % 82.9 % (38.7-73.9); Platelet Count 157 T/CUMM (130-400); Red Blood Count 3.41 MC/CUMM (3.8-5.5)
[2017-06-29 07:16] LABS: Band Neutrophils 2 % (0-10); Lymphocytes 4 % (20-55); Segmented Neutrophils 87 % (50-85); Total Cells Counted 100
[2017-06-29 07:18] LABS: Burr Cells Few; Microcytosis Slight; Platelet Estimate Adequate
[2017-06-29] MEDS: VANCOMYCIN INJ 1,000 MG in SODIUM CHLORIDE 0.9% 250 ML IV SCH ×2 (07:23→15:18)
[2017-06-29] MEDS: ALBUTEROL/IPRATROPIUM 3 ML NEB RESP TX SCH ×3 (07:30→19:54)
[2017-06-29 07:42] LABS: Calcium 7.3 MG/DL (8.5-10.1); Osmolality,Calculated 287.7 MOS/KG (273-304); Potassium 3.9 MMOL/L (3.5-5.1)
[2017-06-29] MEDS: PANTOPRAZOLE 40 MG TABLET PO SCH (08:24)
[2017-06-29] MEDS: MEMANTINE 10 MG TABLET PO SCH ×2 (08:24→20:02)
[2017-06-29] MEDS: AMANTADINE 100 MG CAPSULE PO SCH (08:25)
--- NOTE | 2017-06-29 12:24 | Neurology Progress Note ---
Neurology - PN : Subjective Interval history: Patient may be a little better. However is still unresponsive. Very minimally following commands in the right side. However moving extremities spontaneously. reported that she had a history of very significant and severe restless leg syndrome too. Exam (Progress Note) - Constitutional Vitals: Period Temp Pulse Resp BP Sys/Dawson Pulse Ox Last 24 Hr 97.0 F-98.5 F 90-131 11-23 93-159/50-107 87-95 Exam: GENERAL: Patient is in no acute distress. NECK: Neck is quite stiff. There is no JVD. No carotid bruits present. No thyroid masses. CVS: First and second heart sounds are normal. There is no S3 present. Regular rate and rhythm. RESPIRATORY: Lungs are clear to auscultation without any rales or rhonchi. ABDOMEN: Soft and non-tender. Bowel sounds are present. There is no hepatosplenomegaly. EXT: There is no palpable edema. Peripheral pulses are present. Skin: No rashes Central Nervous system: General: Sleepy but arousable and very disoriented Speech: None Comprehension: Impaired Facial expressions: Normal Cranial Nerves: Pupils are sluggish. Doll's head eye movements are positive. No facial asymmetry is seen Motor: Lead pipe type rigidity in all 4 extremities along with neck Sensory: Cannot be assessed Reflexes: 1+ and symmetrical Cerebellar function: Cannot be assessed Toes: Upgoing bilaterally Gait: Cannot be assessed Results - Labs CBC & BMP: 06/29/17 06:15 06/29/17 06:14 Assessment and Plan (1) Mental status change Problem details: fever, leukocytosis and recent spine intervention are concerning for meningitis Status: Chronic Assessment and plan: Etiology not clear. No evidence of meningitis in the spinal tap. Lab data does not support NMS either but cannot be excluded entirely. Trial of amantadine EEG is pending Add Sinemet Thank you for the consult Current Visit: No
[2017-06-29] MEDS: CARBIDOPA/LEVODOPA CR 25-100 MG TABLET PO SCH ×2 (12:33→20:03)
--- NOTE | 2017-06-29 17:03 | Hospitalist Progress Note ---
Hospitalist: Subjective Interval history: 76 year old female with PMHx of HTN, dementia, and GERD, admitted with confusion and mental status change. Exam - Constitutional Vitals: Period Temp Pulse Resp BP Sys/Dawson Pulse Ox Last 24 Hr 97.0 F-98.5 F 97-142 11-25 99-159/50-107 87-95 Exam: GENERAL: no acute distress. NECK: Some neck stiffness CVS: S1-S2 audible ,regular rate and rhythm. RESPIRATORY: Lungs are clear to auscultation without any rales or rhonchi. ABDOMEN: Soft and non-tender. Positive bowel sounds EXT: No edema peripheral pulses are present. Skin: No rashes Central Nervous system: Disoriented Results - Labs CBC & BMP: 06/29/17 06:15 06/29/17 06:14 - Impressions Assessment and Plan (1) Altered mental status Status: Acute Assessment and plan: Workup in progress. Lumbar puncture and MRI brain were done, did not explain mental status change. EEG pending. Trial of Amantadine & Sinemet. Appreciate neurology following Current Visit: Yes (2) Fever Status: Acute Assessment and plan: Cont antibiotics and follow-up cultures Current Visit: Yes (3) Dementia, Alzheimer's, with behavior disturbance Status: Acute Current Visit: No (4) Status post recent epidural steroid injection Status: Acute Current Visit: Yes Nutrition: Clinimix IV
[2017-06-29] MEDS ORDERED: DEXTROSE 50% 25 GM/50 ML SYRINGE IV PRN (17:04)
[2017-06-29] MEDS ORDERED: DEXTROSE 10% 1,000 ML IV PRN (17:04)
[2017-06-29] MEDS ORDERED: GLUCAGON 1 MG VIAL IM PRN (17:04)
[2017-06-29] MEDS: INSULIN REGULAR 100 UNIT/ML SUBCUT SCH ×2 (17:20→23:52)
[2017-06-29] MEDS: ATORVASTATIN 20 MG TABLET PO SCH (20:02)
[2017-06-29] MEDS: AMINO ACIDS/DEXT/LYTES 4.25-5% 2,000 ML IV SCH (20:02)
[2017-06-30] MEDS: DILTIAZEM INJ 100 MG in SODIUM CHLORIDE 0.9% 100 ML IV SCH ×4 (00:06→23:19)
[2017-06-30] MEDS: VANCOMYCIN INJ 1,000 MG in SODIUM CHLORIDE 0.9% 250 ML IV SCH ×3 (00:06→19:11)
[2017-06-30] MEDS: AMPICILLIN INJ 2,000 MG in SODIUM CHLORIDE 0.9% 100 ML IV SCH ×5 (02:18→18:02)
[2017-06-30] MEDS: SODIUM CHLORIDE 0.9% 1,000 ML IV SCH ×3 (04:45→20:16)
[2017-06-30] MEDS: ACYCLOVIR INJ 750 MG in SODIUM CHLORIDE 0.9% 250 ML IV SCH ×3 (04:46→22:57)
[2017-06-30] MEDS: INSULIN REGULAR 100 UNIT/ML SUBCUT SCH ×4 (05:28→23:24)
[2017-06-30] MEDS: cefTRIAXone 2,000 MG in SODIUM CHLORIDE 0.9% 100 ML IV SCH ×2 (05:56→18:02)
[2017-06-30 06:25] LABS: Calcium 7.7 MG/DL (8.5-10.1); Osmolality,Calculated 297.1 MOS/KG (273-304); Potassium 3.7 MMOL/L (3.5-5.1)
[2017-06-30 06:33] LABS: Basophils # 0.1 10*3/uL (0.0-0.2); Basophils % 0.4 % (0.0-0.8); Hematocrit 33.8 VOL% (35.7-47.0); Hemoglobin 10.7 GM/DL (12.0-16.0); Immature Granulocytes % 1.4 %; Immature Granulocytes Absolute 0.23 #; Lymphocytes # 0.9 10*3/uL (1.4-4.0); Lymphocytes % 5.3 % (21.3-54.2); Mean Corpuscular HGB Conc 31.7 GM/DL (32-36); Mean Corpuscular Hemoglobin 31 PG (27-34); Mean Platelet Volume 10.5 FL (9.6-12.0); Monocytes % 5.9 % (1.7-12.7); Neutrophils # 14.6 10*3/uL (1.4-7.4); Platelet Count 115 T/CUMM (130-400); Red Blood Count 3.45 MC/CUMM (3.8-5.5); Red Cell Distribution Width 14.6 % (9.3-17.3); White Blood Count 16.8 T/CUMM (4-12)
[2017-06-30] MEDS: ALBUTEROL/IPRATROPIUM 3 ML NEB RESP TX SCH ×3 (07:42→20:35)
[2017-06-30] MEDS: AMANTADINE 100 MG CAPSULE PO SCH (08:13)
[2017-06-30] MEDS: MEMANTINE 10 MG TABLET PO SCH ×2 (08:13→20:16)
[2017-06-30] MEDS: CARBIDOPA/LEVODOPA CR 25-100 MG TABLET PO SCH ×2 (08:13→20:16)
[2017-06-30] MEDS: PANTOPRAZOLE 40 MG TABLET PO SCH (08:13)
[2017-06-30] MEDS: LORazepam 2 MG/1 ML VIAL IV PRN ×2 (09:03→18:53)
--- NOTE | 2017-06-30 13:46 | Neurology Progress Note ---
Neurology - PN : Subjective Interval history: Patient seems to be doing about the same. Still unresponsive and keeping her legs folded. Not waking up when even deep painful stimuli. We will repeat MRI of the brain and do cervical spine. Exam (Progress Note) - Constitutional Vitals: Period Temp Pulse Resp BP Sys/Dawson Pulse Ox Last 24 Hr 97.1 F-99.9 F 91-142 15-34 100-165/52-94 83-98 Exam: GENERAL: Patient is in no acute distress. NECK: Neck is quite stiff. There is no JVD. No carotid bruits present. No thyroid masses. CVS: First and second heart sounds are normal. There is no S3 present. Regular rate and rhythm. RESPIRATORY: Lungs are clear to auscultation without any rales or rhonchi. ABDOMEN: Soft and non-tender. Bowel sounds are present. There is no hepatosplenomegaly. EXT: There is no palpable edema. Peripheral pulses are present. Skin: No rashes Central Nervous system: General: Sleepy but arousable and very disoriented Speech: None Comprehension: Impaired Facial expressions: Normal Cranial Nerves: Pupils are sluggish. Doll's head eye movements are positive. No facial asymmetry is seen Motor: Lead pipe type rigidity in all 4 extremities along with neck Sensory: Cannot be assessed Reflexes: 1+ and symmetrical Cerebellar function: Cannot be assessed Toes: Upgoing bilaterally Gait: Cannot be assessed Results - Labs CBC & BMP: 06/30/17 05:22 06/30/17 05:22 Assessment and Plan (1) Mental status change Problem details: fever, leukocytosis and recent spine intervention are concerning for meningitis Status: Chronic Assessment and plan: Etiology not clear. No evidence of meningitis in the spinal tap. Lab data does not support NMS either but cannot be excluded entirely. Continue amantadine and Sinemet. MRI of the brain and cervical spine Current Visit: No
[2017-06-30] MEDS ORDERED: METOPROLOL TARTRATE 25 MG TABLET PO SCH (15:00)
--- NOTE | 2017-06-30 15:34 | Cardiology Consult Note ---
Assessment and Plan - Time spent with patient Time spent with patient: Greater than 30 minutes (1) Atrial fibrillation with RVR Status: Acute Assessment and plan: SEE PLAN OF CARE LISTED BELOW. Current Visit: Yes (2) Altered mental status Status: Acute Assessment and plan: SEE PLAN OF CARE LISTED BELOW. Current Visit: Yes (3) Fever Status: Acute Assessment and plan: SEE PLAN OF CARE LISTED BELOW. Current Visit: Yes (4) Leukocytosis Status: Acute Assessment and plan: SEE PLAN OF CARE LISTED BELOW. Current Visit: Yes (5) Dementia, Alzheimer's, with behavior disturbance Status: Chronic Assessment and plan: SEE PLAN OF CARE LISTED BELOW. Current Visit: No (6) Paroxysmal a-fib Status: Chronic Assessment and plan: SEE PLAN OF CARE LISTED BELOW. Current Visit: Yes (7) Hypertension Status: Chronic Assessment and plan: SEE PLAN OF CARE LISTED BELOW. Current Visit: Yes (8) Dyslipidemia Status: Chronic Assessment and plan: SEE PLAN OF CARE LISTED BELOW. Current Visit: Yes (9) Former cigarette smoker Status: Chronic Assessment and plan: SEE PLAN OF CARE LISTED BELOW. Current Visit: No (10) History of gastroesophageal reflux (GERD) Status: Chronic Assessment and plan: SEE PLAN OF CARE LISTED BELOW. Current Visit: Yes History of Present Illness - Data of Consult Patient: known to practice within the last 3 years Consult date: 06/30/17 Requesting Physician: Isabel Garcia Primary care physician: Vern Francis - Consult Narrative Reason for consult: a fib with rvr History of present illness: Effervescent Salts Compounder: Dr. Garcia in the remote past PCP: Dr. Sorensen Patient is disoriented and unable to participate in interview. is at bedside and majority of information was obtained from him and patient's EMR. Patient is a DNR. Ms. Ballesteros is a 76 year old female with known history of coronary artery disease , followed by Dr. Garcia in the remote past. Patient has cardiac risk factors significant for advanced age, hypertension, dyslipidemia, former smoker (quit in 2004) and family history of coronary artery disease (mother, father and brother). She has a past medical history of paroxysmal atrial fibrillation, Alzheimer's dementia and GERD. Per patient's , patient was on Xarelto for stroke prevention in the remote past. She was taken off of this medication due to frequent falls. He reports that she has no prior history of stroke. Patient has never undergone heart catheterization or stress testing in the past. No record of echocardiogram found in EMR. Patient was last seen by Dr. Garcia in 2014. At that time, she was status post cardioversion. She was taken off amiodarone and beta-blockade was increased at that time. She was instructed to only return to office on an as-needed basis as travel back and forth was difficult. Patient presented to [facility] with high fever and altered mental status. reports that her fever was as high as 103 at home. White blood cell count was noted to be 17. According to her medical record, she did undergo epidural injection on Friday by Dr. Lora. Etiology of her mental status change is not completely clear at this time. No evidence of meningitis in the spinal tap. Lab data does not support NMS either but cannot be excluded entirely. Head CT did not reveal an acute abnormality. EEG results are pending. Neurology is following. Trial with Sinemet and Amantadine. Patient continues to have low-grade fever. She is on IV antibiotics. Infectious disease is following. This hospitalization, she was noted to be in atrial fibrillation with rapid ventricular response. Subsequently, she was started on Cardizem infusion. This is most likely exacerbated by her acute illness. Heart rates have been ranging from 110-120 today. In the past, she was on Xarelto for stroke prevention. However, this was discontinued due to frequent falls. Risk outweighed benefit at that time. She per her 's report, she had no problem with blood thinner. No history of GI bleeding. Cardiology has been consulted to further assist with patient's atrial fibrillation. Patient was seen and examined in the CCU. She is currently in atrial relation with rapid ventricular response. Heart rates ranging from 110-120. Patient has history of paroxysmal atrial fibrillation. Unfortunately, patient is unable to swallow. Nursing staff is unable to successfully put down an NG tube. Patient's home medication of metoprolol unable to be reinitiated. IV Cardizem infusing at 15 mg/hour. Can consider adding IV digoxin to help with rate control. I have ordered echocardiogram to assess patient's LV systolic function. She was taken off of Xarelto several years ago due to frequent falls. She has not been anticoagulated since that time. Chads vasc score 4. Risk and benefits of anticoagulation discussed with the . I will further discuss with Dr. Rogers and await his additional recommendations. ASSESSMENT/PLAN 1. ATRIAL FIBRILLATION WITH RAPID VENTRICULAR RESPONSE - Patient has history of paroxysmal atrial fibrillation. Unfortunately, patient is unable to swallow. Nursing staff is unable to successfully put down an NG tube. Patient' s home medication of metoprolol unable to be reinitiated. IV Cardizem infusing at 15 mg/hour. Can consider adding IV digoxin to help with rate control. I have ordered echocardiogram to assess patient's LV systolic function. She was taken off of Xarelto several years ago due to frequent falls. She has not been anticoagulated since that time. Chads vasc score 4. Risk and benefits of anticoagulation discussed with the . I will further discuss with Dr. Rogers and await his additional recommendations. 2. ALTERED MENTAL STATUS - Etiology unknown at this time. Neurology following. EEG results pending. 3. HYPERTENSION - Well controlled this lateralization. Will monitor blood pressure and adjust accordingly. 4. DYSLIPIDEMIA - Continue lipid-lowering agent. Lipid panel in the morning. 5. FORMER SMOKER - Quit smoking in 2004 6. HISTORY OF ALZHEIMER'S DEMENTIA - Continue current plan of care. 7. HISTORY OF GERD - Continue PPI 8. FEVER - Improving. Continue current plan of care with IV antibiotics. Infectious disease is following 9. LEUKOCYTOSIS - Patient did receive epidural steroid injection last Friday continue current plan of care. Management per attending. CC: Iasbel Garcia MD - Home Medications and Allergies Home Medications: Home Medications Medication Instructions Recorded Confirmed Type Atorvastatin [Lipitor] 20 mg PO DAILY 11/24/15 06/27/17 History Metoprolol Tartrate 25 mg PO DAILY 11/24/15 06/27/17 History Omeprazole 1 tablet PO DAILY 11/24/15 06/27/17 History Zaleplon [Sonata] 5 mg PO BEDTIME PRN #30 capsule 12/08/15 06/27/17 Rx Donepezil [Aricept] 10 mg PO DAILY 06/27/17 06/27/17 History Gabapentin Cap/Tab [Neurontin 400 mg PO TID 06/27/17 06/27/17 History Cap/Tab] Lisinopril 5 mg PO DAILY 06/27/17 06/27/17 History Loratadine Tab [Claritin Tab] 10 mg PO DAILY 06/27/17 06/27/17 History Oxybutynin Chloride [Oxybutynin 15 mg PO DAILY 06/27/17 06/27/17 History Chloride ER] Quetiapine Fumarate [Seroquel] 50 mg PO DAILY 06/27/17 06/27/17 History Allergies/Adverse Reactions: Allergies Allergy/AdvReac Type Severity Reaction Status Date / Time No Known Allergies Allergy Verified 07/24/15 17:00 ROS unobtainable: due to mental status Medical,Surgical,& Family Hx - Medical History Cardio: History of: Cardiac Dysrhythmia (Paroxysmal atrial fibrillation), Hypertension, Cardiovascular Problems (HX OF AFIB) Psychological: History of: Anxiety Disorders, Behavior Problems (highly anxious or restless unable to sit still or hyperactive), Depression, Psychiatric/ Substance Abuse Tx, Violent Behavior (combative behavior toward others.), Psychiatric Problems (depressed mood aeb frequent crying spells and sleep disturbance) Neurology: History of: Dementia HEENT: History of: Eye Problem Genitourinary: History of: Kidney Stones Gastrointestinal: History of: GERD, Hemorrhoids Musculoskeletal: History of: Back/Neck Problems, Degenerative Disk Disease, Herniated Disk, Osteoporosis, Musculoskeletal Problems - Surgical History HEENT Surgeries: Surgical HX of: Eye Surgery (cataract removal) Abdominal Surgeries: Surgical HX of: Cholecystectomy Reproductive Surgeries: Surgical HX of;: Gynecologic Surgery, Hysterectomy Orthopedic Surgeries: Surgical HX of;: Orthopedic Surgery (back surgery), Spinal Surgery - Family History Family History: Reports;: Family Cancer (maternal grandfather), Family Heart Disease (father (36 years old)) - Social History Smoking Status: Former smoker Frequency of Alcohol Use: None Type of Drug Use: None Marital Status: Lives With:: Spouse Physical Examination Vital Signs Temp Pulse Resp BP Pulse Ox 101.9 F H 80 20 122/70 94 L 06/27/17 10:35 06/27/17 10:35 06/27/17 10:35 06/27/17 10:35 06/27/17 10:35 Exam: General: Chronically ill-appearing. Disoriented. Tachypneic. HEENT: normocephalic, atraumatic. No jaundice noted. Conjunctiva moist and clear, sclerae anicteric Neck: No JVD/HJR, no thyromegaly noted. No carotid bruit appreciated Cardiac: Irregular rhythm, tachycardia. No murmur rub or gallop. Lungs: Clear to auscultation. Tachypnea Abdomen: Soft, bowel sounds hypoactive. Extremities: No clubbing, cyanosis noted. Generalized trace edema. Upper extremity pulses 2+. Lower extremity pulses 2+. Neuro: Disoriented. EEG in progress. Result/EKG - Labs CBC & BMP: 06/30/17 05:22 06/30/17 05:22 Lab Results: I have reviewed the past 24 hour labs Labs: Laboratory Results - last 24 hr 06/29/17 06/30/17 06/30/17 23:47 05:20 05:22 WBC 16.8 H RBC 3.45 L Hgb 10.7 L Hct 33.8 L MCV 98.0 MCH 31 MCHC 31.7 L RDW 14.6 Plt Count 115 L D MPV 10.5 Neut % (Auto) 87.0 H Lymph % (Auto) 5.3 L [place] % (Auto) 5.9 Eos % (Auto) 0.0 Baso % (Auto) 0.4 Neut # (Auto) 14.6 H Lymph # (Auto) 0.9 L [place] # (Auto) 1.0 H Eos # (Auto) 0.0 Baso # (Auto) 0.1 Immature Gran % 1.4 Nucleated RBC % 0.0 Immature Gran # 0.23 Nucleated RBCs # 0.00 Immature Plt Fraction 2.6 Sodium Potassium Chloride Carbon Dioxide Anion Gap BUN Creatinine GFR Calculation BUN/Creatinine Ratio Glucose POC Glucose 124 H 164 H Calculated Osmolality Calcium Vancomycin Trough 06/30/17 06/30/17 05:22 07:09 WBC RBC Hgb Hct MCV MCH MCHC RDW Plt Count MPV Neut % (Auto) Lymph % (Auto) [place] % (Auto) Eos % (Auto) Baso % (Auto) Neut # (Auto) Lymph # (Auto) [place] # (Auto) Eos # (Auto) Baso # (Auto) Immature Gran % Nucleated RBC % Immature Gran # Nucleated RBCs # Immature Plt Fraction Sodium 149 H Potassium 3.7 Chloride 121 H Carbon Dioxide 16 L Anion Gap 15.7 H BUN 12 Creatinine 0.40 L GFR Calculation 101 BUN/Creatinine Ratio 30.00 H Glucose 132 H POC Glucose Calculated Osmolality 297.1 Calcium 7.7 L Vancomycin Trough 9.8 L - EKG EKG results: interpreted by me EKG shows: atrial fibrillation
--- NOTE | 2017-06-30 15:44 | Hospitalist Progress Note ---
Hospitalist: Subjective Interval history: 76 year old female with PMHx of HTN, dementia, and GERD, admitted with confusion and mental status change. She remains encephalopathic Exam - Constitutional Vitals: Period Temp Pulse Resp BP Sys/Dawson Pulse Ox Last 24 Hr 97.1 F-99.9 F 91-130 15-34 100-165/53-94 83-98 Exam: GENERAL: no acute distress. NECK: Some neck stiffness CVS: S1-S2 audible ,regular rate and rhythm. RESPIRATORY: Lungs are clear to auscultation without any rales or rhonchi. ABDOMEN: Soft and non-tender. Positive bowel sounds EXT: No edema peripheral pulses are present. Skin: No rashes Central Nervous system: Disoriented, leadpipe rigidity in limbs and neck Results - Labs CBC & BMP: 06/30/17 05:22 06/30/17 05:22 - Impressions Assessment and Plan (1) Altered mental status Status: Acute Assessment and plan: Workup in progress. Lumbar puncture and MRI brain were done, did not explain mental status change. EEG pending. Trial of Amantadine & Sinemet. reports history of tick bite and mosquito exposure, will check Lyme serology as well as West Nile titers. Appreciate neurology following Current Visit: Yes (2) Fever Status: Acute Assessment and plan: Cont antibiotics and follow-up cultures Current Visit: Yes (3) Dementia, Alzheimer's, with behavior disturbance Status: Acute Current Visit: No (4) Status post recent epidural steroid injection Status: Acute Current Visit: Yes Nutrition: Clinimix IV
--- NOTE | 2017-06-30 17:31 | ECHO Report ---
Ambreen Ballesteros Exam Date: 06/30/2017 15:37 Referring Physician: Technologist: deanen Schuster ARDMS, RVT Age: 76 Ht (in): 64 Wt (lb): 152 Gender: F Exam Location: [facility] Echo Indications: Essential (primary) hypertension, Atrial fibrillation, Altered mental status, Fever, Dementia/ Alzheimers BP: 139 / 80 HR: 128 Rhythm: Atrial fibrillation Technical Quality: Limited IMPRESSIONS Left ventricular ejection fraction is estimated at 65 %. The patient is in atrial fibrillation the rate is uncontrolled. Moderate tricuspid regurgitation velocities suggest a PAP of 69 mmHg. Difficult to quantfy mitral regurgitation MEASUREMENTS (Male / Female) Normal Values 2D ECHO LV Diastolic Diameter PLAX 4.4 cm 4.2 - 5.9 / 3.9 - 5.3 cm LV Systolic Diameter PLAX 2.2 cm LV Fractional Shortening PLAX 49.9 % IVS Diastolic Thickness 0.7 cm 0.6 - 1.0 / 0.6 - 0.9 cm LVPW Diastolic Thickness 0.8 cm 0.6 - 1.0 / 0.6 - 0.9 cm RV Internal Dim ED PLAX 3.6 cm Aortic Root Diameter 2.9 cm LA Systolic Diameter LX 3.8 cm 3.0 - 4.0 / 2.7 - 3.8 cm DOPPLER TR Peak Velocity 385.0 cm/s TR Peak Gradient 59.3 mmHg FINDINGS Left Ventricle Normal left ventricular cavity size. Normal left ventricular wall thickness. Left ventricular ejection fraction is estimated at 65 %. The patient is in atrial fibrillation the rate is uncontrolled. Right Ventricle Mildly increased right ventricular size. Right Atrium The right atrium is mildly enlarged. Left Atrium The left atrium is normal in size. Mitral Valve Morphologically normal mitral valve. Mitral valve regurgitation that is difficult to quantify. Aortic Valve Morphologically normal aortic valve without significant sclerosis or stenosis. There is no aortic regurgitation. Tricuspid Valve Morphologically normal tricuspid valve. [id number] tricuspid valve regurgitation. Tricuspid regurgitation velocities suggest a PAP of 69 mmHg. Pulmonic Valve Pulmonic valve not well visualized. Pericardium Normal pericardium without effusion. Aorta Normal ascending aorta dimension. Christi Rogers (Electronically Signed) Final Date: 30 June 2017 17:22
--- NOTE | 2017-06-30 17:42 | Event Note ---
I came to see the patient. She is in MRI clinic down the street. I will come back and try again later.
--- NOTE | 2017-06-30 18:32 | Magnetic Resonance Report ---
MR head/brain w and wo con Indication: Unresponsive. MRI BRAIN WITH AND WITHOUT CONTRAST Technique: Multiplanar MR images of the brain were obtained before and after the IV administration of gadolinium, 13 cc.. Comparison: MRI brain 06/28/2017 Findings: No restricted diffusion. Motion artifact is again present but less severe than the earlier study. Generalized atrophy and periventricular white matter T2 and FLAIR hyperintensities again shown. Postcontrast administration, where the motion artifact is most severe, no enhancing lesions are identified within the brain or dural surfaces. Impression: No abnormal enhancement postcontrast. No change from 2 days ago. PROCEDURE INTERPRETED AT [facility] DEPARTMENT OF RADIOLOGY Final Report Signed by: David Quezada M.D.
--- NOTE | 2017-06-30 18:38 | Magnetic Resonance Report ---
MR cervical spine wo con Indication: Spasticity. MRI CERVICAL SPINE WITHOUT CONTRAST Technique: Multiplanar noncontrast MR images of the cervical spine were obtained. Comparison: 01/12/2014. Findings: Motion artifact is present on this exam. Endplate osteophytes with disc desiccation and disc space narrowing C3-4, C4-5, C5-6 and C6-7 appears similar to the previous exam. That includes reversal of cervical lordosis from C3 through C5. No abnormal cord signal shown. No abnormal marrow signal present. Endplate Modic signal changes at C6-7 are present. C2-3: Small midline disc bulge without contacting the cord. No foraminal stenosis. C3-4: Broad-based disc bulge contacts the ventral cord without canal stenosis. Too much motion artifact to evaluate foramina reliably. C4-5: Broad-based disc bulge contacts the ventral cord without canal stenosis. There appears to be at least mild bilateral foraminal stenosis from uncovertebral joint hypertrophy. This appears unchanged. C5-6: Broad-based disc bulge contacts the ventral cord without significant canal stenosis. Bilateral foraminal stenosis appears present secondary to uncovertebral joint hypertrophy. This is stable. C6-7: Again, broad-based disc bulge contacts the ventral cord without significant canal stenosis. Bilateral foraminal stenosis appears present, mild. C7-T1: No significant disc bulge, canal or foraminal stenosis. Impression: 1. Motion artifact limits evaluation somewhat. There does appear to be some degree of mild foraminal stenosis bilaterally at C4-5, C5-6 and possibly C6-7. In general, consider repeat MRI the cervical spine if better characterization of these levels is necessary once patient is compliant. 2. Multiple levels of broad-based disc bulge contact the ventral cord without causing canal stenosis. No abnormal cord signal shown. PROCEDURE INTERPRETED AT [facility] DEPARTMENT OF RADIOLOGY Final Report Signed by: David uQezada M.D.
[2017-06-30] MEDS: ATORVASTATIN 20 MG TABLET PO SCH (20:16)
[2017-06-30] MEDS: AMINO ACIDS/DEXT/LYTES 4.25-5% 2,000 ML IV SCH (22:57)
[2017-07-01] MEDS: METOPROLOL TARTRATE 5 MG/5 ML VIAL IV SCH ×2 (00:07→05:55)
[2017-07-01] MEDS: AMPICILLIN INJ 2,000 MG in SODIUM CHLORIDE 0.9% 100 ML IV SCH ×3 (00:19→10:28)
[2017-07-01] MEDS: VANCOMYCIN INJ 1,000 MG in SODIUM CHLORIDE 0.9% 250 ML IV SCH ×2 (00:58→10:28)
[2017-07-01] MEDS: cefTRIAXone 2,000 MG in SODIUM CHLORIDE 0.9% 100 ML IV SCH ×2 (05:19→19:41)
[2017-07-01] MEDS: LORazepam 2 MG/1 ML VIAL IV PRN (05:19)
[2017-07-01] MEDS: INSULIN REGULAR 100 UNIT/ML SUBCUT SCH ×3 (05:55→18:32)
[2017-07-01] MEDS: ACYCLOVIR INJ 750 MG in SODIUM CHLORIDE 0.9% 250 ML IV SCH ×3 (06:01→22:48)
--- NOTE | 2017-07-01 07:20 | Event Note ---
The patient has responded well to IV beta cash and her heart rate is down and her blood pressure is good. Her mental status appears to be unchanged. Nothing to recommend or change at this time. Continue parenteral route until enteral route is available. Once enteral route is available convert to immediate release Cardizem and metoprolol tartrate.
[2017-07-01] MEDS: ALBUTEROL/IPRATROPIUM 3 ML NEB RESP TX SCH ×3 (07:36→19:56)
[2017-07-01 09:52] LABS: Basophils # 0.1 10*3/uL (0.0-0.2); Basophils % 0.3 % (0.0-0.8); Eosinophils % 0.1 % (0.00-10.9); Hematocrit 33.6 VOL% (35.7-47.0); Immature Granulocytes % 2.5 %; Immature Granulocytes Absolute 0.37 #; Lymphocytes # 1.4 10*3/uL (1.4-4.0); Lymphocytes % 9.8 % (21.3-54.2); Mean Corpuscular HGB Conc 35.7 GM/DL (32-36); Mean Corpuscular Hemoglobin 31 PG (27-34); Mean Corpuscular Volume 86.8 FL (87-102); Monocytes # 1.3 10*3/uL (0.11-0.8); Monocytes % 9.1 % (1.7-12.7); Neutrophils # 11.4 10*3/uL (1.4-7.4); Neutrophils % 78.2 % (38.7-73.9); Platelet Count 264 T/CUMM (130-400); Red Blood Count 3.87 MC/CUMM (3.8-5.5); Red Cell Distribution Width 14.1 % (9.3-17.3); White Blood Count 14.5 T/CUMM (4-12)
[2017-07-01] MEDS: CARBIDOPA/LEVODOPA CR 25-100 MG TABLET PO SCH ×2 (10:26→20:04)
[2017-07-01] MEDS: AMANTADINE 100 MG CAPSULE PO SCH (10:26)
[2017-07-01] MEDS: PANTOPRAZOLE 40 MG TABLET PO SCH (10:26)
[2017-07-01 10:27] LABS: Calcium 8.4 MG/DL (8.5-10.1); Osmolality,Calculated 291.6 MOS/KG (273-304); Potassium 2.7 MMOL/L (3.5-5.1)
[2017-07-01] MEDS: MEMANTINE 10 MG TABLET PO SCH (10:29)
[2017-07-01 10:53] LABS: ABG Base Excess -2.4 MMOL/L (-2.5-2.5); ABG HCO3 20.3 MMOL/L (20-26); ABG Oxygen Saturation 95.7 % (95-100); ABG PCO2 28.8 MM HG (35-48); ABG PH 7.466 (7.35-7.45); ABG PO2 75.5 MM HG (80-95); ABG TCO2 21.2 MMOL/L (23-27)
--- NOTE | 2017-07-01 12:03 | Hospitalist Progress Note ---
Assessment and Plan (1) Mental status change Problem details: fever, leukocytosis and recent spine intervention are concerning for meningitis Status: Chronic Assessment and plan: 1)encephalopathy- likely metabolic. MRI brain looked ok on repeat with contrast. EEG not read in chart. NMS considered, some meds held but continues sinimet and amantadine per DR Treviño. Fevers have resolved. She does have cellulitis of her left foot with central dark spot that could be an insect bite. No open areas. improving with resolution of the red streak over the last couple of days. continue ceftriaxone. CSF looked ok and cultures all negative. stop vanc and ampicillin. consider stopping acyclovir, but discuss with Dr Treviño first. Her is discouraged. Today if IR can place an NGT or keofed, we can give tube feeds instead of PPN, and oral dilt and metoptolol instead of IV and she could then go to the floor where her family could be with her so that when she had more responsive moments her would be there. 2)cellulitis 3)nutrition 4)low potassium 5)afib- rate controlled with IV dilt and Lopressor- convert to oral. Current Visit: No (2) Cellulitis Status: Acute Current Visit: Yes (3) Hypertension Status: Chronic Current Visit: No (4) Dementia, Alzheimer's, with behavior disturbance Status: Chronic Current Visit: No (5) Status post epidural steroid injection Status: Acute Current Visit: Yes (6) Neuroleptic malignant syndrome Status: Acute Current Visit: Yes (7) Atrial fibrillation with RVR Status: Acute Current Visit: Yes (8) Hypertension Status: Chronic Current Visit: Yes Hospitalist: Subjective Interval history: Mrs Ballesteros is about the same according to her family and the nursing staff. I spoke with her and son for a while this morning and reviewed her test results and heard their story of what happened prior to admission. She remains unresponsive to voice. Keeps her legs drawn up. Her says that at baseline she can't feed herself or dress/bathe herself. She has not walked for 2 years. She was able to communicate and answered questions in the ER. Exam - Constitutional Vitals: Period Temp Pulse Resp BP Sys/Dawson Pulse Ox Last 24 Hr 97.6 F-99.9 F 73-132 19-37 119-171/56-107 88-99 General appearance: normal weight, no acute distress (snoring, still) - Head Head exam: Present: normocephalic, atraumatic - Eye Eye exam: Absent: scleral icterus Pupils: Present: ARIELLE - Respiratory Respiratory exam: Present: clear to auscultation bilaterally - Cardiovascular Cardiovascular exam: Present: irregular rhythm - GI/Abdominal GI/Abdominal exam: Present: normal bowel sounds, soft. Absent: tenderness - Extremities Exam Extremities exam: Present: edema (left foot with patch of erythema with central dark spot but no open places. Per nurse she had a streak up her leg a few days ago that has gone away though the foot looks more red and swollen.) - Neurological Exam Neurological exam: Present: altered (eyes closed, snores. withdraws to pain. occ moans. ) - Skin Skin exam: Absent: diaphoretic, rash Results - Labs CBC & BMP: 07/01/17 09:45 07/01/17 09:45 Lab Results: I have reviewed the past 24 hour labs
[2017-07-01] MEDS ORDERED: DILTIAZEM 30 MG TABLET PO SCH (13:00)
[2017-07-01] MEDS: METOPROLOL TARTRATE 25 MG TABLET PO SCH ×2 (13:16→20:04)
[2017-07-01] MEDS ORDERED: AMINO ACIDS/DEXT/LYTES 4.25-5% 2,000 ML IV SCH ×2 (13:53→17:00)
[2017-07-01] MEDS ORDERED: DILTIAZEM INJ 100 MG in SODIUM CHLORIDE 0.9% 100 ML IV SCH (14:00)
[2017-07-01] MEDS: POTASSIUM CHLORIDE 20 MEQ TABLET PO SCH ×2 (14:17→19:51)
[2017-07-01] MEDS: DILTIAZEM 30 MG TABLET PO SCH ×3 (14:17→20:04)
[2017-07-01] MEDS ORDERED: VANCOMYCIN INJ 1,000 MG in SODIUM CHLORIDE 0.9% 250 ML IV SCH (16:00)
--- NOTE | 2017-07-01 16:44 | Neurology Progress Note ---
Neurology - PN : Subjective Interval history: Patient seems to be doing about the same. Still quite unresponsive. Repeat MRI reveals no significant pathology. MRI cervical spine is unremarkable as well. It is not clear why her mental status is like this. Exam (Progress Note) - Constitutional Vitals: Period Temp Pulse Resp BP Sys/Dawson Pulse Ox Last 24 Hr 97.6 F-98.3 F 73-132 23-37 119-171/60-107 88-99 Exam: GENERAL: Patient is in no acute distress. NECK: Neck is quite stiff. There is no JVD. No carotid bruits present. No thyroid masses. CVS: First and second heart sounds are normal. There is no S3 present. Regular rate and rhythm. RESPIRATORY: Lungs are clear to auscultation without any rales or rhonchi. ABDOMEN: Soft and non-tender. Bowel sounds are present. There is no hepatosplenomegaly. EXT: There is no palpable edema. Peripheral pulses are present. Skin: No rashes Central Nervous system: General: Sleepy but arousable and very disoriented Speech: None Comprehension: Impaired Facial expressions: Normal Cranial Nerves: Pupils are sluggish. Doll's head eye movements are positive. No facial asymmetry is seen Motor: Lead pipe type rigidity in all 4 extremities along with neck Sensory: Cannot be assessed Reflexes: 1+ and symmetrical Cerebellar function: Cannot be assessed Toes: Upgoing bilaterally Gait: Cannot be assessed Results - Labs CBC & BMP: 07/01/17 09:45 07/01/17 09:45 Assessment and Plan (1) Mental status change Problem details: fever, leukocytosis and recent spine intervention are concerning for meningitis Status: Chronic Assessment and plan: Etiology not clear. No evidence of meningitis in the spinal tap. Lab data does not support NMS Amantadine and Sinemet has not helped much. Continue current antibiotic treatment. Awaiting CSF herpes PCR report Current Visit: No
--- NOTE | 2017-07-01 17:03 | Fluoroscopy Report ---
FL feeding tube Clinical Information: Needs feeding tube, unable to do at bedside. Total fluoroscopy time: 4.4 min Total number of images for the procedure: 181 Comparison: None available Findings: Initial attempts at placement with a weighted Dobbhoff tube were unsuccessful. Subsequently, a Kumpe catheter and Glidewire were advanced into the proximal esophagus with some difficulty. Again, there was difficulty with advancing past the gastroesophageal junction, but positioning within the proximal stomach was achieved. Over this, an 18 Filipino enteral feeding tube was advanced into the stomach. Positioning within the stomach was confirmed with injection of air through the feeding tube. Patient tolerated the procedure well. Impression: Fluoroscopically guided feeding tube placement as detailed above. The tube is ready for use. PROCEDURE INTERPRETED AT [facility]PARTMENT OF RADIOLOGY Final Report Signed by: Joshua Castorena
[2017-07-01] MEDS: POTASSIUM CHLORIDE 20 MEQ/15 ML UDCUP NG SCH (19:42)
[2017-07-01] MEDS: ATORVASTATIN 20 MG TABLET PO SCH (20:04)
[2017-07-02] MEDS: INSULIN REGULAR 100 UNIT/ML SUBCUT SCH ×4 (00:22→17:35)
[2017-07-02] MEDS: POTASSIUM CHLORIDE 20 MEQ/15 ML UDCUP NG SCH ×2 (01:55→07:43)
[2017-07-02 04:38] LABS: Basophils % 0.1 % (0.0-0.8); Eosinophils % 0.2 % (0.00-10.9); Hematocrit 30.3 VOL% (35.7-47.0); Hemoglobin 10.4 GM/DL (12.0-16.0); Immature Granulocytes % 3.4 %; Immature Granulocytes Absolute 0.46 #; Lymphocytes # 1.7 10*3/uL (1.4-4.0); Lymphocytes % 12.6 % (21.3-54.2); Mean Corpuscular HGB Conc 34.3 GM/DL (32-36); Mean Corpuscular Hemoglobin 30 PG (27-34); Mean Corpuscular Volume 87.3 FL (87-102); Mean Platelet Volume 9.1 FL (9.6-12.0); Monocytes # 0.9 10*3/uL (0.11-0.8); Monocytes % 6.8 % (1.7-12.7); Neutrophils # 10.3 10*3/uL (1.4-7.4); Neutrophils % 76.9 % (38.7-73.9); Platelet Count 268 T/CUMM (130-400); Red Blood Count 3.47 MC/CUMM (3.8-5.5); Red Cell Distribution Width 14.1 % (9.3-17.3); White Blood Count 13.4 T/CUMM (4-12)
[2017-07-02 05:03] LABS: Osmolality,Calculated 290.7 MOS/KG (273-304); Potassium 3.6 MMOL/L (3.5-5.1)
[2017-07-02 05:09] LABS: Phosphorous 1.4 MG/DL (2.5-4.9); Prealbumin 4.2 MG/DL (20-40)
[2017-07-02] MEDS: cefTRIAXone 2,000 MG in SODIUM CHLORIDE 0.9% 100 ML IV SCH ×2 (06:25→19:36)
[2017-07-02] MEDS: ALBUTEROL/IPRATROPIUM 3 ML NEB RESP TX SCH ×3 (07:32→19:49)
[2017-07-02] MEDS: ACYCLOVIR INJ 750 MG in SODIUM CHLORIDE 0.9% 250 ML IV SCH ×2 (07:44→14:53)
--- NOTE | 2017-07-02 07:59 | Cardiology Progress Note ---
Assessment and Plan (1) Atrial fibrillation with RVR Status: Acute Assessment and plan: SEE PLAN OF CARE LISTED BELOW. Current Visit: Yes (2) Altered mental status Status: Acute Assessment and plan: SEE PLAN OF CARE LISTED BELOW. Current Visit: Yes (3) Fever Status: Acute Assessment and plan: SEE PLAN OF CARE LISTED BELOW. Current Visit: Yes (4) Leukocytosis Status: Acute Assessment and plan: SEE PLAN OF CARE LISTED BELOW. Current Visit: Yes (5) Dementia, Alzheimer's, with behavior disturbance Status: Chronic Assessment and plan: SEE PLAN OF CARE LISTED BELOW. Current Visit: No (6) Paroxysmal a-fib Status: Chronic Assessment and plan: SEE PLAN OF CARE LISTED BELOW. Current Visit: Yes (7) Hypertension Status: Chronic Assessment and plan: SEE PLAN OF CARE LISTED BELOW. Current Visit: Yes (8) Dyslipidemia Status: Chronic Assessment and plan: SEE PLAN OF CARE LISTED BELOW. Current Visit: Yes (9) Former cigarette smoker Status: Chronic Assessment and plan: SEE PLAN OF CARE LISTED BELOW. Current Visit: No (10) History of gastroesophageal reflux (GERD) Status: Chronic Assessment and plan: SEE PLAN OF CARE LISTED BELOW. 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 Sorensen Patient is a DNR. SUMMARY Ms. Ballesteros is a 76 year old female with known history of coronary artery disease, followed by Dr. Garcia in the remote past. Patient has cardiac risk factors significant for advanced age, hypertension, dyslipidemia, former smoker (quit in 2004) and family history of coronary artery disease (mother, father and brother). She has a past medical history of paroxysmal atrial fibrillation , Alzheimer's dementia and GERD. Per patient's , patient was on Xarelto for stroke prevention in the remote past. She was taken off of this medication due to frequent falls. He reports that she has no prior history of stroke. Patient has never undergone heart catheterization or stress testing in the past. No record of echocardiogram found in EMR. Patient was last seen by Dr. Garcia in 2014. At that time, she was status post cardioversion. She was taken off amiodarone and beta-blockade was increased at that time. She was instructed to only return to office on an as-needed basis as travel back and forth was difficult. Patient presented to [facility] with high fever and altered mental status. During patient's hospitalization, she was noted to be in atrial fibrillation with rapid ventricular response. Subsequently, she was started on IV Cardizem. Patient does have a history of paroxysmal atrial fibrillation. Difficult to obtain rate control. Echocardiogram was performed which revealed preserved ejection fraction with moderate pulmonary hypertension. Cardiology was consulted to assist. JULY 02, 2017 UPDATE Patient was seen and examined in the CCU. Neurologically, she is unchanged. She is arousable however unable to follow commands or answer questions when asked. She had nasogastric tube placed yesterday per interventional radiology. She has been started on tube feedings. Patient was switched to p.o. beta blockade and calcium channel cash yesterday. She is tolerating well. This morning, she remains in atrial fibrillation, now rate controlled. Heart rates ranging from 90s-105. Blood pressure within acceptable range. White blood cell count is improving. Today it is 13.4. At this point, we will continue with p.o. diltiazem and calcium channel cash as patient's rate is reasonably controlled. I will discuss with Dr. Rogers and await his additional recommendations. ASSESSMENT/PLAN 1. ATRIAL FIBRILLATION WITH RAPID VENTRICULAR RESPONSE - Patient has history of paroxysmal atrial fibrillation. Patient had NG tube placed yesterday per IR. She has been switched to p.o. beta-blockade and calcium channel cash. She has tolerated well. Heart rate now reasonably controlled. Ranging from 90- 105. She was taken off of Xarelto several years ago due to frequent falls. She has not been anticoagulated since that time. Chads vasc score 4. However, she does not appear to be a good anticoagulation candidate long-term. I will discuss with Dr. Rogers and await his additional recommendations. 2. ALTERED MENTAL STATUS - Etiology unknown at this time. Neurology following. Continue IV antibiotics. 3. HYPERTENSION - Well controlled this hospitalization. Will monitor blood pressure and adjust accordingly. 4. DYSLIPIDEMIA - Continue lipid-lowering agent. 5. FORMER SMOKER - Quit smoking in 2004 6. HISTORY OF ALZHEIMER'S DEMENTIA - Continue current plan of care. 7. HISTORY OF GERD - Continue PPI 8. FEVER - Now afebrile. Continue current plan of care with IV antibiotics. Infectious disease is following 9. LEUKOCYTOSIS - Improving. Patient did receive epidural steroid injection last Wednesday continue current plan of care. Management per attending. Exam (Progress Note) - Constitutional Vitals: Period Temp Pulse Resp BP Sys/Dawson Pulse Ox Last 24 Hr 97.2 F-97.7 F 71-807 17-36 105-171/60-107 88-100 Exam: General: Chronically ill-appearing. Disoriented. HEENT: normocephalic, atraumatic. No jaundice noted. Conjunctiva moist and clear, sclerae anicteric Neck: No JVD/HJR, no thyromegaly noted. No carotid bruit appreciated Cardiac: Irregular rhythm, controlled rate. Lungs: Clear to auscultation. Requiring oxygen Via Ventimask Abdomen: Soft. Nondistended. Positive bowel sounds. Extremities: No clubbing, cyanosis noted. Generalized trace edema. Upper extremity pulses 2+. Lower extremity pulses 2+. Neuro: Disoriented. Arousable. Unable to answer open-ended questions. Unable to follow commands Result/EKG - Labs CBC & BMP: 07/02/17 04:01 07/02/17 04:01 Lab Results: I have reviewed the past 24 hour labs Labs: Laboratory Results - last 24 hr 06/27/17 06/27/17 07/01/17 16:15 16:15 09:45 WBC 14.5 H RBC 3.87 Hgb 12.0 Hct 33.6 L MCV 86.8 L MCH 31 MCHC 35.7 RDW 14.1 Plt Count 264 D MPV 9.0 L Neut % (Auto) 78.2 H Lymph % (Auto) 9.8 L Valley % (Auto) 9.1 Eos % (Auto) 0.1 Baso % (Auto) 0.3 Neut # (Auto) 11.4 H Lymph # (Auto) 1.4 Valley # (Auto) 1.3 H Eos # (Auto) 0.0 Baso # (Auto) 0.1 Immature Gran % 2.5 Nucleated RBC % 0.0 Immature Gran # 0.37 Nucleated RBCs # 0.00 Immature Plt Fraction 0.0 ABG pH ABG pCO2 ABG pO2 ABG HCO3 ABG Total CO2 ABG O2 Saturation ABG Base Excess Sodium Potassium Chloride Carbon Dioxide Anion Gap BUN Creatinine GFR Calculation BUN/Creatinine Ratio Glucose POC Glucose Calculated Osmolality Calcium Phosphorus Magnesium Prealbumin CSF Herpes I DNA (PCR) Negative CSF Herpes II DNA (PCR) Negative HSV I DNA PCR TNP 07/01/17 07/01/17 07/01/17 09:45 10:49 12:14 WBC RBC Hgb Hct MCV MCH MCHC RDW Plt Count MPV Neut % (Auto) Lymph % (Auto) Valley % (Auto) Eos % (Auto) Baso % (Auto) Neut # (Auto) Lymph # (Auto) Valley # (Auto) Eos # (Auto) Baso # (Auto) Immature Gran % Nucleated RBC % Immature Gran # Nucleated RBCs # Immature Plt Fraction ABG pH 7.466 H ABG pCO2 28.8 L ABG pO2 75.5 L ABG HCO3 20.3 ABG Total CO2 21.2 L ABG O2 Saturation 95.7 ABG Base Excess -2.4 Sodium 146 H Potassium 2.7 L Chloride 114 H Carbon Dioxide 22 Anion Gap 12.7 BUN 9 Creatinine 0.40 L GFR Calculation 102 BUN/Creatinine Ratio 22.00 H Glucose 146 H POC Glucose 170 H Calculated Osmolality 291.6 Calcium 8.4 L Phosphorus Magnesium Prealbumin CSF Herpes I DNA (PCR) CSF Herpes II DNA (PCR) HSV I DNA PCR 07/01/17 07/02/17 07/02/17 18:22 00:15 04:01 WBC RBC Hgb Hct MCV MCH MCHC RDW Plt Count MPV Neut % (Auto) Lymph % (Auto) Valley % (Auto) Eos % (Auto) Baso % (Auto) Neut # (Auto) Lymph # (Auto) Valley # (Auto) Eos # (Auto) Baso # (Auto) Immature Gran % Nucleated RBC % Immature Gran # Nucleated RBCs # Immature Plt Fraction ABG pH ABG pCO2 ABG pO2 ABG HCO3 ABG Total CO2 ABG O2 Saturation ABG Base Excess Sodium Potassium Chloride Carbon Dioxide Anion Gap BUN Creatinine GFR Calculation BUN/Creatinine Ratio Glucose POC Glucose 160 H 148 H Calculated Osmolality Calcium Phosphorus 1.4 L Magnesium 2.0 Prealbumin 4.2 L CSF Herpes I DNA (PCR) CSF Herpes II DNA (PCR) HSV I DNA PCR 07/02/17 07/02/17 07/02/17 04:01 04:01 05:21 WBC 13.4 H RBC 3.47 L Hgb 10.4 L Hct 30.3 L MCV 87.3 MCH 30 MCHC 34.3 RDW 14.1 Plt Count 268 MPV 9.1 L Neut % (Auto) 76.9 H Lymph % (Auto) 12.6 L Valley % (Auto) 6.8 Eos % (Auto) 0.2 Baso % (Auto) 0.1 Neut # (Auto) 10.3 H Lymph # (Auto) 1.7 Valley # (Auto) 0.9 H Eos # (Auto) 0.0 Baso # (Auto) 0.0 Immature Gran % 3.4 Nucleated RBC % 0.0 Immature Gran # 0.46 Nucleated RBCs # 0.00 Immature Plt Fraction 0.0 ABG pH ABG pCO2 ABG pO2 ABG HCO3 ABG Total CO2 ABG O2 Saturation ABG Base Excess Sodium 145 Potassium 3.6 Chloride 113 H Carbon Dioxide 26 Anion Gap 9.6 BUN 13 Creatinine 0.40 L GFR Calculation 102 BUN/Creatinine Ratio 32.00 H Glucose 144 H POC Glucose 134 H Calculated Osmolality 290.7 Calcium 8.0 L Phosphorus Magnesium Prealbumin CSF Herpes I DNA (PCR) CSF Herpes II DNA (PCR) HSV I DNA PCR
[2017-07-02] MEDS: METOPROLOL TARTRATE 25 MG TABLET PO SCH ×2 (08:11→21:21)
[2017-07-02] MEDS: CARBIDOPA/LEVODOPA CR 25-100 MG TABLET PO SCH ×2 (08:12→21:21)
[2017-07-02] MEDS: AMANTADINE 100 MG CAPSULE PO SCH (08:12)
[2017-07-02] MEDS: PANTOPRAZOLE 40 MG TABLET PO SCH (08:12)
[2017-07-02] MEDS: DILTIAZEM 30 MG TABLET PO SCH ×4 (08:12→21:20)
[2017-07-02] MEDS ORDERED: DONEPEZIL 10 MG TABLET PO SCH (09:00)
--- NOTE | 2017-07-02 11:29 | Hospitalist Progress Note ---
Assessment and Plan (1) Mental status change Problem details: fever, leukocytosis and recent spine intervention are concerning for meningitis Status: Chronic Assessment and plan: 1)encephalopathy- likely metabolic. MRI brain looked ok on repeat with contrast. EEG not read in chart. NMS considered, some meds held but continues sinemet and amantadine per Dr Treviño. Fevers have resolved. She does have cellulitis of her left foot with central dark spot that could be an insect bite. No open areas. improving with resolution of the red streak over the last couple of days. continue ceftriaxone. CSF looked ok and cultures all negative. stop vanc and ampicillin. considered stopping acyclovir, but awaiting herpes pcr first. Her is discouraged. IR was able to place an NGT. Tube feeds started, changed to oral meds for rate control. She is DNR. Transfer to floor. may need placement. Not sure family would want PEG, etc. 2)cellulitis 3)nutrition 4)low potassium 5)afib- rate controlled Current Visit: No (2) Cellulitis Status: Acute Current Visit: Yes (3) Hypertension Status: Chronic Current Visit: No (4) Dementia, Alzheimer's, with behavior disturbance Status: Chronic Current Visit: No (5) Status post epidural steroid injection Status: Acute Current Visit: Yes (6) Neuroleptic malignant syndrome Status: Acute Current Visit: Yes (7) Atrial fibrillation with RVR Status: Acute Current Visit: Yes (8) Hypertension Status: Chronic Current Visit: Yes Hospitalist: Subjective Interval history: Mrs Ballesteros is about the same this morning, but she did try to speak to me amidst her moans. She had feeding tube placed by IR yesterday under fluoro and has had tube feeds and oral meds for afib since and has tolerated them. transfer to floor today. No cultures positive yet, cellulitis on left foot looks better, no open areas or drainage. Exam - Constitutional Vitals: Period Temp Pulse Resp BP Sys/Dawson Pulse Ox Last 24 Hr 97.0 F-97.6 F 71-807 11-35 99-165/49-103 91-100 General appearance: normal weight, no acute distress - Eye Eye exam: Present: EOMI. Absent: scleral icterus - Respiratory Respiratory exam: Present: clear to auscultation bilaterally - Cardiovascular Cardiovascular exam: Present: irregular rhythm - GI/Abdominal GI/Abdominal exam: Present: normal bowel sounds, soft. Absent: tenderness - Extremities Exam Extremities exam: Present: other (patch of redness on top on left foot and into ankle is less red and smaller in size compared to yesterday.). Absent: edema - Neurological Exam Neurological exam: Absent: alert Results - Labs CBC & BMP: 07/02/17 04:01 07/02/17 04:01 Lab Results: I have reviewed the past 24 hour labs
[2017-07-02] MEDS: LORazepam 2 MG/1 ML VIAL IV PRN (15:25)
[2017-07-02] MEDS: ATORVASTATIN 20 MG TABLET PO SCH (21:19)
[2017-07-02 22:36] LABS: West Nile Virus PCR, P Negative (Negative)
[2017-07-03] MEDS: ACYCLOVIR INJ 750 MG in SODIUM CHLORIDE 0.9% 250 ML IV SCH (01:54)
[2017-07-03] MEDS: INSULIN REGULAR 100 UNIT/ML SUBCUT SCH ×4 (02:52→17:35)
[2017-07-03] MEDS: cefTRIAXone 2,000 MG in SODIUM CHLORIDE 0.9% 100 ML IV SCH ×2 (05:54→21:08)
[2017-07-03 06:37] LABS: Calcium 7.8 MG/DL (8.5-10.1); Osmolality,Calculated 291.6 MOS/KG (273-304)
[2017-07-03 06:49] LABS: Magnesium 1.9 MG/DL (1.8-2.4); Phosphorous 1.7 MG/DL (2.5-4.9)
[2017-07-03] MEDS: ALBUTEROL/IPRATROPIUM 3 ML NEB RESP TX SCH ×3 (08:00→19:43)
--- NOTE | 2017-07-03 08:20 | Hospitalist Progress Note ---
Assessment and Plan (1) Encephalopathy Status: Acute Assessment and plan: She has previously known history of Alzheimer's dementia. She has a superimposed metabolic encephalopathy most probably secondary to her present infection. Current Visit: Yes (2) Alzheimer's dementia Status: Chronic Current Visit: No (3) Atrial fibrillation with RVR Status: Acute Assessment and plan: Today her blood pressure is 137/78 and heart rate 1 14/min. She continues on the same medications. She is being followed by cardiology. Current Visit: Yes (4) Cellulitis Status: Acute Assessment and plan: She has cellulitis of her left lower extremity for which she is being treated with intravenous ceftriaxone. Current Visit: Yes Qualifiers: Site of cellulitis: extremity Site of cellulitis of extremity: lower extremity Laterality: left Qualified Code(s): L03.116 - Cellulitis of left lower limb (5) Dysphagia Status: Acute Assessment and plan: She has been unable to eat. She now has a nasogastric tube through which she is receiving tube feedings. She will require a PEG tube if she is to undergo usp placement. Current Visit: Yes Qualifiers: Dysphagia type: unspecified Qualified Code(s): R13.10 - Dysphagia, unspecified Hospitalist: Subjective Interval history: Patient was transferred from the ICU to the floor yesterday. She has cellulitis of her foot for which she is being treated with ceftriaxone, atrial fibrillation with adequate rate control on present medications, inability to eat for which she has been treated with an NG tube, and severe encephalopathy. She requires continuing treatment of her cellulitis. I will consult case management for placement following discharge. Exam - Constitutional Vitals: Period Temp Pulse Resp BP Sys/Dawson Pulse Ox Last 24 Hr 97.5 F-99.7 F 72-114 11-21 93-139/49-89 95-99 General appearance: no acute distress, other (Nasogastric tube.) - Head Head exam: Present: normal inspection - Neck Neck exam: Present: normal inspection - Respiratory Respiratory exam: Present: clear to auscultation bilaterally - Cardiovascular Cardiovascular exam: Present: regular rate and rhythm - GI/Abdominal GI/Abdominal exam: Present: normal bowel sounds, soft, other (Nontender with no palpable masses or hepatosplenomegaly.) - Extremities Exam Extremities exam: Present: other (Cellulitis of left foot.) - Neurological Exam Neurological exam: Present: other (She is arousable but does not appear to understand conversation.) - Skin Skin exam: Present: normal color, warm, intact Results - Labs CBC & BMP: 07/02/17 04:01 07/03/17 05:37
[2017-07-03] MEDS: METOPROLOL TARTRATE 25 MG TABLET PO SCH ×2 (09:10→21:15)
[2017-07-03] MEDS: CARBIDOPA/LEVODOPA CR 25-100 MG TABLET PO SCH ×2 (09:10→21:07)
[2017-07-03] MEDS: AMANTADINE 100 MG CAPSULE PO SCH (09:10)
[2017-07-03] MEDS: DILTIAZEM 30 MG TABLET PO SCH ×4 (09:10→21:07)
[2017-07-03] MEDS: PANTOPRAZOLE 40 MG TABLET PO SCH (09:10)
--- NOTE | 2017-07-03 09:57 | Physician Query Form ---
CLICK EDIT DOCUMENT TO SELECT QUERY ANSWER --> OK --> SIGN Cristine Strange RN, CCDS Certified Clinical Technical Delivery Manager W) [phone] (f) [phone] [email or web address] PROVIDERS: Make your selection(s) from the choices in EACH section by typing an "x" and enter comments in the comment section. Please use your independent medical judgment in providing your response. This request does not imply that any particular answer is desired or expected. CLINICAL INDICATORS: (Providers should not edit this section) The medical record indicates that the patient was admitted with AMS, pulse increased from 68---166, respirations increased from 16--32 and the patient was later increased from 2 liters per NC to six liters per Venturi Mask. If possible, please further clarify the type and acuity of respiratory diagnosis : ACUITY: (x ) Acute ( ) Chronic ( ) Acute on Chronic TYPE: (x ) Respiratory failure with hypoxia ( ) Respiratory failure with hypercapnia ( ) Respiratory Arrest ( ) Postprocedural/postoperative respiratory failure ( ) Respiratory Insufficiency ( ) ARDS (Adult/Acute Respiratory Distress Syndrome) ( ) Other, please specify: ( ) Clinically unable to determine Recognized criteria for respiratory failure PH <7.35 or >7.45 PO2 <60 PCO2 >50 RR >24 O2 Sat <90% on RA or <95% on O2 Use of accessory muscles Unable to speak in full sentences Intubation is not required COMMENTS: PLEASE ALSO DOCUMENT RESPONSE IN PROGRESS NOTES AND/OR DISCHARGE SUMMARY Use of terms such as suspected, likely, or probable (associated with a specific diagnosis that is being evaluated, monitored, or treated as if it exists) are acceptable and can be restated in the discharge summary if not ruled out. MTDD
[2017-07-03] MEDS: ATORVASTATIN 20 MG TABLET PO SCH (21:08)
[2017-07-04] MEDS: INSULIN REGULAR 100 UNIT/ML SUBCUT SCH ×4 (01:02→18:08)
[2017-07-04 05:33] LABS: Basophils # 0.1 10*3/uL (0.0-0.2); Basophils % 0.4 % (0.0-0.8); Eosinophils # 0.1 10*3/uL (0.0-0.87); Eosinophils % 0.7 % (0.00-10.9); Hematocrit 32.4 VOL% (35.7-47.0); Hemoglobin 10.9 GM/DL (12.0-16.0); Immature Granulocytes Absolute 0.78 #; Lymphocytes # 2.3 10*3/uL (1.4-4.0); Lymphocytes % 17.9 % (21.3-54.2); Mean Corpuscular HGB Conc 33.6 GM/DL (32-36); Mean Corpuscular Hemoglobin 30 PG (27-34); Mean Corpuscular Volume 89.8 FL (87-102); Mean Platelet Volume 10.2 FL (9.6-12.0); Monocytes # 0.7 10*3/uL (0.11-0.8); NRBC # 0.02 10*3/uL; Neutrophils # 9.1 10*3/uL (1.4-7.4); Platelet Count 263 T/CUMM (130-400); Red Blood Count 3.61 MC/CUMM (3.8-5.5); Red Cell Distribution Width 14.5 % (9.3-17.3)
[2017-07-04 05:53] LABS: Band Neutrophils 2 % (0-10); Hypochromasia 1+; Lymphocytes 19 % (20-55); Platelet Estimate Adequate; Segmented Neutrophils 76 % (50-85); Total Cells Counted 100
[2017-07-04 06:07] LABS: Osmolality,Calculated 282.1 MOS/KG (273-304); Potassium 4.3 MMOL/L (3.5-5.1)
[2017-07-04] MEDS: ALBUTEROL/IPRATROPIUM 3 ML NEB RESP TX SCH ×3 (07:29→20:09)
[2017-07-04] MEDS: AMANTADINE 100 MG CAPSULE PO SCH (08:30)
[2017-07-04] MEDS: PANTOPRAZOLE 40 MG TABLET PO SCH (08:30)
[2017-07-04] MEDS: CARBIDOPA/LEVODOPA CR 25-100 MG TABLET PO SCH (08:30)
[2017-07-04 08:31] LABS: Epstein-Barr Virus Result Negative (Negative); Epstein-Barr Virus Source CSF; Specimen Source CSF
[2017-07-04] MEDS: METOPROLOL TARTRATE 25 MG TABLET PO SCH ×2 (08:31→23:21)
[2017-07-04] MEDS: DILTIAZEM 30 MG TABLET PO SCH ×4 (08:31→23:20)
[2017-07-04] MEDS: cefTRIAXone 2,000 MG in SODIUM CHLORIDE 0.9% 100 ML IV SCH ×2 (08:32→23:20)
--- NOTE | 2017-07-04 12:02 | Hospitalist Progress Note ---
Assessment and Plan - Time spent with patient Time spent with patient: Greater than 30 minutes (1) Altered mental status Status: Acute Assessment and plan: Currently on empiric antibiotics with Rocephin, cultures are negative. Continue same for now. On anticholinergic medication which may need to be discontinued as toxicity associated with these medication may present similarly. On oral Cardizem, monitor rate. Current Visit: Yes (2) Atrial fibrillation with RVR Status: Acute Current Visit: Yes (3) Dysphagia Status: Acute Current Visit: Yes Qualifiers: Dysphagia type: unspecified Qualified Code(s): R13.10 - Dysphagia, unspecified (4) Encephalopathy Status: Acute Current Visit: Yes (5) Febrile illness Status: Acute Current Visit: Yes (6) Leukocytosis Status: Acute Current Visit: Yes (7) Pulmonary hypertension Status: Acute Current Visit: Yes Hospitalist: Subjective Interval history: This is a patient who was admitted with fever, altered mental status of unclear etiology. Workup for infective causes have all come back negative. Fever has now improved, this is my first encounter with the patient so I do not know her baseline mental status. Still tachycardic but managing to maintain blood pressure. Exam - Constitutional Vitals: Period Temp Pulse Resp BP Sys/Dawson Pulse Ox Last 24 Hr 96.2 F-98.8 F 81-122 18-30 111-153/61-85 93-98 Exam: General appearance: no acute distress, other - Head Head exam: Present: normal inspection - Neck Neck exam: Present: normal inspection - Respiratory Respiratory exam: Present: clear to auscultation bilaterally - Cardiovascular Cardiovascular exam: Present: regular rate and rhythm - GI/Abdominal GI/Abdominal exam: Present: normal bowel sounds, soft, other (Nontender with no palpable masses or hepatosplenomegaly.) - Extremities Exam Extremities exam: Present: other (Cellulitis of left foot.) - Neurological Exam Neurological exam: Present: other (She is arousable but does not appear to understand conversation.) - Skin Skin exam: Present: normal color, warm, intact Results - Labs CBC & BMP: 07/04/17 04:23 07/04/17 04:23 Lab Results: I have reviewed the past 24 hour labs
--- NOTE | 2017-07-04 14:41 | Neurology Progress Note ---
Neurology - PN : Subjective Interval history: Patient seems to be doing about the same. Continues legs movements are still there. reported that as far as leg movements are concerned she is back to her baseline however mentally she is still almost 50% off. Exam (Progress Note) - Constitutional Vitals: Period Temp Pulse Resp BP Sys/Dawson Pulse Ox Last 24 Hr 97.8 F-98.8 F 82-122 18-30 111-153/61-85 93-99 Exam: GENERAL: Patient is in no acute distress. NECK: Neck is quite stiff. There is no JVD. No carotid bruits present. No thyroid masses. CVS: First and second heart sounds are normal. There is no S3 present. Regular rate and rhythm. RESPIRATORY: Lungs are clear to auscultation without any rales or rhonchi. ABDOMEN: Soft and non-tender. Bowel sounds are present. There is no hepatosplenomegaly. EXT: There is no palpable edema. Peripheral pulses are present. Skin: No rashes Central Nervous system: General: Sleepy but arousable and very disoriented Speech: None Comprehension: Impaired Facial expressions: Normal Cranial Nerves: Pupils are sluggish. Doll's head eye movements are positive. No facial asymmetry is seen Motor: Lead pipe type rigidity in all 4 extremities along with neck Sensory: Cannot be assessed Reflexes: 1+ and symmetrical Cerebellar function: Cannot be assessed Toes: Upgoing bilaterally Gait: Cannot be assessed Results - Labs CBC & BMP: 07/04/17 04:23 07/04/17 04:23 Assessment and Plan (1) Mental status change Problem details: fever, leukocytosis and recent spine intervention are concerning for meningitis Status: Chronic Assessment and plan: Etiology not clear. No evidence of meningitis in the spinal tap. Lab data does not support NMS Amantadine and Sinemet has not helped much. We will stop it now Continue current antibiotic treatment. Stop acyclovir Need movement disorder specialist evaluation at [facility] Current Visit: No
[2017-07-04] MEDS: ATORVASTATIN 20 MG TABLET PO SCH (23:21)
[2017-07-05] MEDS: INSULIN REGULAR 100 UNIT/ML SUBCUT SCH ×3 (02:08→12:01)
[2017-07-05] MEDS: LORazepam 2 MG/1 ML VIAL IV PRN ×2 (02:13→18:02)
[2017-07-05] MEDS: ALBUTEROL/IPRATROPIUM 3 ML NEB RESP TX SCH ×3 (07:18→19:52)
[2017-07-05] MEDS: DILTIAZEM 30 MG TABLET PO SCH ×4 (09:01→20:46)
[2017-07-05] MEDS: METOPROLOL TARTRATE 25 MG TABLET PO SCH ×2 (09:03→20:46)
[2017-07-05] MEDS: PANTOPRAZOLE 40 MG TABLET PO SCH (09:04)
[2017-07-05] MEDS: cefTRIAXone 2,000 MG in SODIUM CHLORIDE 0.9% 100 ML IV SCH ×2 (09:14→20:47)
--- NOTE | 2017-07-05 14:06 | Hospitalist Progress Note ---
Assessment and Plan - Time spent with patient Time spent with patient: Greater than 30 minutes (1) Altered mental status Status: Acute Assessment and plan: We will keep current antibiotics with Rocephin, cultures are negative. Continue same for now. On anticholinergic medication which may need to be discontinued as toxicity associated with these medication may present similarly. On oral Cardizem, monitor rate. We will start planning for transfer to send her with movement disorder specialist once current clinical status improves enough for that. Current Visit: Yes (2) Atrial fibrillation with RVR Status: Acute Current Visit: Yes (3) Dysphagia Status: Acute Current Visit: Yes Qualifiers: Dysphagia type: unspecified Qualified Code(s): R13.10 - Dysphagia, unspecified (4) Encephalopathy Status: Acute Current Visit: Yes (5) Febrile illness Status: Acute Current Visit: Yes (6) Leukocytosis Status: Acute Current Visit: Yes (7) Pulmonary hypertension Status: Acute Current Visit: Yes Hospitalist: Subjective Interval history: General condition is essentially the same, continues to have disturbing lower extremity movement. There is eye opening but no order conscious response. No more fever. Neurology suggestion for transfer to the movement disorder specialist noted. Family however prefers that this is done at any hospital in [place] with needed specialty for convenience. Exam - Constitutional Vitals: Period Temp Pulse Resp BP Sys/Dawson Pulse Ox Last 24 Hr 97.2 F-99.5 F 85-118 18-26 122-145/52-82 90-98 Exam: General appearance: no acute distress, other - Head Head exam: Present: normal inspection - Neck Neck exam: Present: normal inspection - Respiratory Respiratory exam: Present: clear to auscultation bilaterally - Cardiovascular Cardiovascular exam: Present: regular rate and rhythm - GI/Abdominal GI/Abdominal exam: Present: normal bowel sounds, soft, other (Nontender with no palpable masses or hepatosplenomegaly.) - Extremities Exam Extremities exam: Present: No edema, continuously moving her feet and leg in no particular order or pattern - Neurological Exam Neurological exam: Present: Spontaneous eye opening but does not appear to understand conversation. No further neurological examination could be done because of her mental status - Skin Skin exam: Present: normal color, warm, intact Results - Labs CBC & BMP: 07/04/17 04:23 07/04/17 04:23 Lab Results: I have reviewed the past 24 hour labs
[2017-07-05] MEDS ORDERED: GABAPENTIN 400 MG CAPSULE PO SCH (15:00)
[2017-07-05] MEDS: GABAPENTIN 50 MG/ML 30 ML/BOTTLE PO SCH (20:46)
[2017-07-05] MEDS: ATORVASTATIN 20 MG TABLET PO SCH (20:47)
[2017-07-06] MEDS: INSULIN REGULAR 100 UNIT/ML SUBCUT SCH ×5 (01:24→22:30)
[2017-07-06] MEDS: ALBUTEROL/IPRATROPIUM 3 ML NEB RESP TX SCH ×3 (07:27→19:27)
--- NOTE | 2017-07-06 08:27 | Hospitalist Progress Note ---
Assessment and Plan - Time spent with patient Time spent with patient: Greater than 30 minutes (1) Altered mental status Status: Acute Assessment and plan: We will keep current antibiotics with Rocephin, cultures are negative but we will trend CBC for her mild leukocytosis. All her anticholinergic medication have been discontinued as toxicity associated with these medication may present similarly. On oral Cardizem for her A. fib, monitor rate. We will start planning for transfer to send her with movement disorder specialist on Friday or when her current clinical status improves enough for that. Repeat labs in the morning Current Visit: Yes (2) Atrial fibrillation with RVR Status: Acute Current Visit: Yes (3) Dysphagia Status: Acute Current Visit: Yes Qualifiers: Dysphagia type: unspecified Qualified Code(s): R13.10 - Dysphagia, unspecified (4) Encephalopathy Status: Acute Current Visit: Yes (5) Febrile illness Status: Acute Current Visit: Yes (6) Leukocytosis Status: Acute Current Visit: Yes (7) Pulmonary hypertension Status: Acute Current Visit: Yes Hospitalist: Subjective Interval history: Difficult case of a 76-year-old lady which have been unable to figure out so far. She presented with fever of unknown origin with change in mental status including unresponsiveness, initially suspected to be due to a [employer] infection likely viral encephalitis, she was started on empiric antibiotics and antiviral therapy, LP was done and it came back negative. Antibiotic antibiotic therapy of being tapered down as no source of infection found. She is slightly more weak but continues to have proposed less movement of both upper and lower limbs though worse in the lower limbs. Neurology has suggested transfer to movement disorder specialist center in [place], [facility] however hopes that similar specialty can be found in [facility] in [place] so that patient can be transferred over there. We will begin discussion with case management to see if there is such a possibility for transfer to [facility] at [place]. For now, we are not making any major medical management changes. Luckily fever has subsided Exam - Constitutional Vitals: Period Temp Pulse Resp BP Sys/Dawson Pulse Ox Last 24 Hr 96.8 F-97.9 F 79-118 20-25 113-147/52-82 93-99 Exam: General appearance: Spontaneously opens eyes, does not respond or follow commands. - Head Head exam: Present: normal inspection - Neck Neck exam: Present: normal inspection - Respiratory Respiratory exam: Present: clear to auscultation bilaterally - Cardiovascular Cardiovascular exam: Present: regular rate and rhythm - GI/Abdominal GI/Abdominal exam: Present: normal bowel sounds, soft, other (Nontender with no palpable masses or hepatosplenomegaly.) - Extremities Exam Extremities exam: Present: No edema, continuously moving her feet and leg in no particular order or pattern - Neurological Exam Neurological exam: Present: Spontaneous eye opening but does not appear to understand conversation. No further neurological examination could be done because of her mental status - Skin Skin exam: Present: normal color, warm, intact Results - Labs CBC & BMP: 07/04/17 04:23 07/04/17 04:23 Lab Results: I have reviewed the past 24 hour labs
[2017-07-06] MEDS: DILTIAZEM 30 MG TABLET PO SCH ×4 (08:44→21:51)
[2017-07-06] MEDS: PANTOPRAZOLE 40 MG TABLET PO SCH (08:45)
[2017-07-06] MEDS: METOPROLOL TARTRATE 25 MG TABLET PO SCH ×2 (08:45→21:51)
[2017-07-06] MEDS: GABAPENTIN 50 MG/ML 30 ML/BOTTLE PO SCH ×3 (08:46→21:51)
[2017-07-06] MEDS: cefTRIAXone 2,000 MG in SODIUM CHLORIDE 0.9% 100 ML IV SCH ×2 (08:46→21:51)
[2017-07-06] MEDS: ATORVASTATIN 20 MG TABLET PO SCH (21:51)
[2017-07-07] MEDS: INSULIN REGULAR 100 UNIT/ML SUBCUT SCH ×4 (01:09→17:12)
[2017-07-07 05:56] LABS: Basophils # 0.1 10*3/uL (0.0-0.2); Basophils % 0.5 % (0.0-0.8); Eosinophils # 0.2 10*3/uL (0.0-0.87); Eosinophils % 1.3 % (0.00-10.9); Hematocrit 34.2 VOL% (35.7-47.0); Hemoglobin 11.4 GM/DL (12.0-16.0); Immature Granulocytes % 1.2 %; Immature Granulocytes Absolute 0.14 #; Lymphocytes # 1.7 10*3/uL (1.4-4.0); Lymphocytes % 15.1 % (21.3-54.2); Mean Corpuscular HGB Conc 33.3 GM/DL (32-36); Mean Corpuscular Hemoglobin 31 PG (27-34); Mean Corpuscular Volume 91.7 FL (87-102); Mean Platelet Volume 9.5 FL (9.6-12.0); Monocytes # 0.8 10*3/uL (0.11-0.8); Monocytes % 6.6 % (1.7-12.7); Neutrophils # 8.6 10*3/uL (1.4-7.4); Neutrophils % 75.3 % (38.7-73.9); Platelet Count 358 T/CUMM (130-400); Red Blood Count 3.73 MC/CUMM (3.8-5.5); Red Cell Distribution Width 14.5 % (9.3-17.3); White Blood Count 11.5 T/CUMM (4-12)
[2017-07-07 06:31] LABS: Magnesium 2.6 MG/DL (1.8-2.4); Phosphorous 4.1 MG/DL (2.5-4.9)
[2017-07-07 06:32] LABS: Alanine Aminotransferase 36 U/L (13-56); Albumin 2.2 G/DL (3.4-5.0); Alkaline Phosphatase 95 U/L (45-117); Aspartate Amino Transferase 44 U/L (0-37); Bilirubin,Total < 0.39 MG/DL (0.2-1.0); Blood Urea Nitrogen 16 MG/DL (7-18); Calcium 8.3 MG/DL (8.5-10.1); Glucose 108 MG/DL (74-106); Osmolality,Calculated 276.7 MOS/KG (273-304); Potassium 4.9 MMOL/L (3.5-5.1); Sodium 138 MMOL/L (136-145); Total Protein 6.1 G/DL (6.4-8.3)
[2017-07-07] MEDS: ALBUTEROL/IPRATROPIUM 3 ML NEB RESP TX SCH ×3 (07:01→19:59)
[2017-07-07] MEDS: LORazepam 2 MG/1 ML VIAL IV PRN (08:56)
--- NOTE | 2017-07-07 09:00 | Neurology Progress Note ---
Neurology - PN : Subjective Interval history: Patient continued to remain same neurologically. Continued to have choreiform movements of lower extremities. I suspect possible [place]'s disease even though there is not much history available. Exam (Progress Note) - Constitutional Vitals: Period Temp Pulse Resp BP Sys/Dawson Pulse Ox Last 24 Hr 96.1 F-99.2 F 70-112 18-20 97-128/59-73 94-98 Exam: GENERAL: Patient is in no acute distress. NECK: Neck is quite stiff. There is no JVD. No carotid bruits present. No thyroid masses. CVS: First and second heart sounds are normal. There is no S3 present. Regular rate and rhythm. RESPIRATORY: Lungs are clear to auscultation without any rales or rhonchi. ABDOMEN: Soft and non-tender. Bowel sounds are present. There is no hepatosplenomegaly. EXT: There is no palpable edema. Peripheral pulses are present. Skin: No rashes Central Nervous system: General: Sleepy but arousable and very disoriented not following any command Speech: None Comprehension: Impaired Facial expressions: Normal Cranial Nerves: Pupils are sluggish. Doll's head eye movements are positive. No facial asymmetry is seen Motor: Lead pipe type rigidity in all 4 extremities along with neck Sensory: Cannot be assessed Reflexes: 1+ and symmetrical Cerebellar function: Cannot be assessed Toes: Upgoing bilaterally Gait: Cannot be assessed Results - Labs CBC & BMP: 07/07/17 05:33 07/07/17 05:33 Assessment and Plan (1) Mental status change Problem details: fever, leukocytosis and recent spine intervention are concerning for meningitis Status: Chronic Assessment and plan: [place] disease analysis Trial of Zyprexa 2.5 twice daily For [facility] movement disorder evaluation Current Visit: No
[2017-07-07] MEDS: cefTRIAXone 2,000 MG in SODIUM CHLORIDE 0.9% 100 ML IV SCH ×2 (09:01→22:30)
[2017-07-07] MEDS: DILTIAZEM 30 MG TABLET PO SCH ×4 (09:02→21:27)
[2017-07-07] MEDS: GABAPENTIN 50 MG/ML 30 ML/BOTTLE PO SCH ×3 (09:02→21:28)
[2017-07-07] MEDS: METOPROLOL TARTRATE 25 MG TABLET PO SCH ×2 (09:02→21:28)
[2017-07-07] MEDS: PANTOPRAZOLE 40 MG TABLET PO SCH (09:02)
[2017-07-07] MEDS: OLANZapine 2.5 MG TABLET PO SCH ×2 (10:17→21:28)
--- NOTE | 2017-07-07 10:40 | Hospitalist Progress Note ---
Assessment and Plan (1) Altered mental status Status: Acute Assessment and plan: Patient admitted with altered medicine fever underwent spinal tap cultures have been negative for any bacteria. She has been on Rocephin she has been afebrile and leukocytosis improving I will continue Rocephin for now Current Visit: Yes (2) Movement disorder Status: Chronic Assessment and plan: Patient seem to have this chronic movement disorder and Dr. Treviño has evaluated and recommend evaluation by a movement disorder specialist at [facility]. This is likely will be done after the discharge Current Visit: Yes (3) Atrial fibrillation with RVR Status: Chronic Assessment and plan: Patient has history of paroxysmal A. fib. Has seen cardiology for rapid ventricular rhythm. He seemed to me that patient has a regular rhythm now. Due to high risk factors anticoagulation was not recommended and planned by card Current Visit: Yes Hospitalist: Subjective Interval history: Mr. Ballesteros is a 76-year-old female with history of hypertension, dementia and restless leg was admitted on 06/27/2017 with altered mental status and fever. She recently had epidural injection. She underwent a spinal tap but her culture has been negative she has been on Rocephin. Dr. Treviño has also evaluated her and suspect [place] disease and recommended movement disorder evaluation at [facility]. Due to dementia and her restless leg/movement disorder she has not been ambulatory for couple years she was able to communicate and eat at home. She has been on NG tube feeding here at the hospital. Patient is sedated at this time she was given Ativan for leg movements. She has been afebrile Exam - Constitutional Vitals: Period Temp Pulse Resp BP Sys/Dawson Pulse Ox Last 24 Hr 96.1 F-99.2 F 70-112 18-20 97-128/59-73 94-98 General appearance: other (Sedated) - Respiratory Respiratory exam: Present: clear to auscultation bilaterally. Absent: rales, rhonchi - Cardiovascular Cardiovascular exam: Present: regular rate and rhythm. Absent: tachycardia - GI/Abdominal GI/Abdominal exam: Present: normal bowel sounds, soft. Absent: distended, tenderness - Extremities Exam Extremities exam: Absent: edema - Neurological Exam Neurological exam: Present: other (Patient sedated and sleepy but arousable. Bilateral involuntary movement of the legs noted) Results - Labs CBC & BMP: 07/07/17 05:33 07/07/17 05:33 Lab Results: I have reviewed the past 24 hour labs
[2017-07-07] MEDS: ATORVASTATIN 20 MG TABLET PO SCH (21:33)
[2017-07-08] MEDS: INSULIN REGULAR 100 UNIT/ML SUBCUT SCH ×4 (01:09→19:10)
[2017-07-08 06:48] LABS: Basophils # 0.1 10*3/uL (0.0-0.2); Basophils % 0.5 % (0.0-0.8); Eosinophils # 0.2 10*3/uL (0.0-0.87); Eosinophils % 1.5 % (0.00-10.9); Hematocrit 34.4 VOL% (35.7-47.0); Hemoglobin 11.6 GM/DL (12.0-16.0); Immature Granulocytes % 1.1 %; Immature Granulocytes Absolute 0.13 #; Lymphocytes # 1.6 10*3/uL (1.4-4.0); Lymphocytes % 13.4 % (21.3-54.2); Mean Corpuscular HGB Conc 33.7 GM/DL (32-36); Mean Corpuscular Hemoglobin 31 PG (27-34); Mean Corpuscular Volume 92.7 FL (87-102); Mean Platelet Volume 9.4 FL (9.6-12.0); Monocytes # 0.7 10*3/uL (0.11-0.8); Monocytes % 6.2 % (1.7-12.7); Neutrophils % 77.3 % (38.7-73.9); Platelet Count 354 T/CUMM (130-400); Red Blood Count 3.71 MC/CUMM (3.8-5.5); Red Cell Distribution Width 14.3 % (9.3-17.3); White Blood Count 11.6 T/CUMM (4-12)
[2017-07-08] MEDS: ALBUTEROL/IPRATROPIUM 3 ML NEB RESP TX SCH ×3 (07:14→18:40)
[2017-07-08 07:30] LABS: Alanine Aminotransferase 33 U/L (13-56); Albumin 2.3 G/DL (3.4-5.0); Alkaline Phosphatase 108 U/L (45-117); Aspartate Amino Transferase 44 U/L (0-37); Bilirubin,Total < 0.39 MG/DL (0.2-1.0); Blood Urea Nitrogen 15 MG/DL (7-18); Calcium 8.3 MG/DL (8.5-10.1); Glucose 112 MG/DL (74-106); Osmolality,Calculated 274.8 MOS/KG (273-304); Potassium 4.9 MMOL/L (3.5-5.1); Sodium 137 MMOL/L (136-145); Total Protein 6.5 G/DL (6.4-8.3)
[2017-07-08] MEDS: cefTRIAXone 2,000 MG in SODIUM CHLORIDE 0.9% 100 ML IV SCH ×2 (08:44→20:01)
[2017-07-08] MEDS: OLANZapine 2.5 MG TABLET PO SCH ×2 (08:54→20:01)
[2017-07-08] MEDS: DILTIAZEM 30 MG TABLET PO SCH ×4 (08:54→20:01)
[2017-07-08] MEDS: METOPROLOL TARTRATE 25 MG TABLET PO SCH (08:54)
[2017-07-08] MEDS: PANTOPRAZOLE 40 MG TABLET PO SCH (08:54)
[2017-07-08] MEDS: GABAPENTIN 50 MG/ML 30 ML/BOTTLE PO SCH ×3 (08:54→20:02)
--- NOTE | 2017-07-08 09:20 | Hospitalist Progress Note ---
Assessment and Plan (1) Altered mental status Status: Acute Assessment and plan: Patient admitted with altered medicine fever underwent spinal tap cultures have been negative for any bacteria. She has been on Rocephin she has been afebrile and leukocytosis improved and stable. Current Visit: Yes (2) Movement disorder Status: Chronic Assessment and plan: Patient seem to have this chronic movement disorder and Dr. Treviño has evaluated and recommend evaluation by a movement disorder specialist at [facility]. After trial of Zyprexa reported improvement of left movement and she slept well Current Visit: Yes (3) Atrial fibrillation with RVR Status: Chronic Assessment and plan: Patient has history of paroxysmal A. fib. Has seen cardiology for rapid ventricular rhythm. Noted her heart rate is rapid today and is regular. I will increase the dose of metoprolol Current Visit: Yes (4) Dysphagia Status: Acute Assessment and plan: Dysphagia was documented in previous notes patient has been on NGT feet but she had altered mental status now awake will ask speech to evaluate for swallowing studies Current Visit: Yes Qualifiers: Dysphagia type: unspecified Qualified Code(s): R13.10 - Dysphagia, unspecified Hospitalist: Subjective Interval history: Patient is awake this morning [id number] in the room with her. She mentioned to her that she is hungry and want to eat. She was given a trial of Zyprexa by Dr. Treviño. Her leg movement reported to be improved significantly. Reported by sister in law that patient slept well last night She is still on NG tube feed. Afebrile Exam - Constitutional Vitals: Period Temp Pulse Resp BP Sys/Dawson Pulse Ox Last 24 Hr 96.0 F-98.8 F 78-130 17-22 94-118/57-81 91-99 eneral appearance: Awake in no distress. - Respiratory Respiratory exam: Present: clear to auscultation bilaterally. Absent: rales, rhonchi - Cardiovascular Cardiovascular exam: Present: Irregular rate and rhythm with tachycardia - GI/Abdominal GI/Abdominal exam: Present: normal bowel sounds, soft. Absent: distended, tenderness - Extremities Exam Extremities exam: Absent: edema - Neurological Exam Neurological exam: Oriented to person and place. Noted her leg movements less severe and frequent than what I noted yesterday Results - Labs CBC & BMP: 07/08/17 06:33 07/08/17 06:33 Lab Results: I have reviewed the past 24 hour labs Specialty Discharge - Follow Up or Referrals Follow up with: Sharri HERMAN [Outside] - 08/08/17 9:20 am
[2017-07-08] MEDS: METOPROLOL TARTRATE 50 MG TABLET PO SCH ×2 (10:22→20:02)
--- NOTE | 2017-07-08 15:05 | Neurology Progress Note ---
Neurology - PN : Subjective Interval history: Patient seems to be doing much better. She has improved remarkably on Zyprexa. She is able to hold conversation now. She knows who she is talking to. Exam (Progress Note) - Constitutional Vitals: Period Temp Pulse Resp BP Sys/Dawson Pulse Ox Last 24 Hr 97.1 F-98.8 F 79-130 17-21 99-118/57-81 93-99 Exam: GENERAL: Patient is in no acute distress. NECK: Neck is quite stiff. There is no JVD. No carotid bruits present. No thyroid masses. CVS: First and second heart sounds are normal. There is no S3 present. Regular rate and rhythm. RESPIRATORY: Lungs are clear to auscultation without any rales or rhonchi. ABDOMEN: Soft and non-tender. Bowel sounds are present. There is no hepatosplenomegaly. EXT: There is no palpable edema. Peripheral pulses are present. Skin: No rashes Central Nervous system: General: Alert and awake and following command Speech: Fluent and clear Comprehension: Fair Facial expressions: Normal Cranial Nerves: Pupils are equally reactive to light. Extraocular movements are intact. No facial asymmetry is seen Motor: Stiffness is much better in the arms and legs. Lower extremity involuntary movements are better Sensory: Cannot be assessed Reflexes: 1+ and symmetrical Cerebellar function: Cannot be assessed Toes: Upgoing bilaterally Gait: Cannot be assessed Results - Labs CBC & BMP: 07/08/17 06:33 07/08/17 06:33 Assessment and Plan (1) Mental status change Problem details: fever, leukocytosis and recent spine intervention are concerning for meningitis Status: Chronic Assessment and plan: This is much better today. Current Visit: No (2) Choreiform movements Status: Acute Assessment and plan: Patient has improved remarkably today. Continue Zyprexa at the same dose for now I am concerned about [place]'s disease/Chorea Current Visit: Yes Specialty Discharge - Follow Up or Referrals Follow up with: Sharri HERMAN [Outside] - 08/08/17 9:20 am
[2017-07-08] MEDS: ATORVASTATIN 20 MG TABLET PO SCH (20:01)
[2017-07-09] MEDS: INSULIN REGULAR 100 UNIT/ML SUBCUT SCH ×4 (01:04→19:59)
[2017-07-09] MEDS: ALBUTEROL/IPRATROPIUM 3 ML NEB RESP TX SCH ×3 (07:10→19:48)
[2017-07-09] MEDS: cefTRIAXone 2,000 MG in SODIUM CHLORIDE 0.9% 100 ML IV SCH ×2 (09:55→20:54)
[2017-07-09] MEDS: METOPROLOL TARTRATE 50 MG TABLET PO SCH ×2 (09:56→21:04)
[2017-07-09] MEDS: DILTIAZEM 30 MG TABLET PO SCH ×4 (09:56→20:54)
[2017-07-09] MEDS: PANTOPRAZOLE 40 MG TABLET PO SCH (09:56)
[2017-07-09] MEDS: OLANZapine 2.5 MG TABLET PO SCH (09:56)
[2017-07-09] MEDS: GABAPENTIN 50 MG/ML 30 ML/BOTTLE PO SCH ×3 (10:40→20:55)
--- NOTE | 2017-07-09 11:21 | Hospitalist Progress Note ---
Assessment and Plan (1) Altered mental status Status: Acute Assessment and plan: Patient admitted with altered medicine fever underwent spinal tap cultures have been negative for any bacteria. She has been on Rocephin she has been afebrile. I will stop Rocephin Current Visit: Yes (2) Movement disorder Status: Chronic Assessment and plan: Patient seem to have this chronic movement disorder and Dr. Treviño has evaluated and recommend to be seen by a movement disorder specialist at [facility]. She has appointment on 08/08/2017. After trial of Zyprexa reported improvement of left movement and she slept well. Family is interested in swing bed placement for continued rehab social insurance adviser is working on options Current Visit: Yes (3) Atrial fibrillation with RVR Status: Chronic Assessment and plan: Patient has history of paroxysmal A. fib. Has seen cardiology for rapid ventricular rhythm. Noted her heart rate is rapid today and is regular. Metoprolol dose was increased to 50 mg twice daily follow heart rate. Seen by cardiology as mentioned and has considered not to give anticoagulation due to frequent falls. In the past she had been on Xarelto Current Visit: Yes (4) Dysphagia Status: Acute Assessment and plan: Seen by the speech and patient on dysphagia diet and tolerating well Current Visit: Yes Qualifiers: Dysphagia type: unspecified Qualified Code(s): R13.10 - Dysphagia, unspecified (5) Leukocytosis Status: Acute Assessment and plan: Patient had elevated WBC on admission blood culture and a spinal culture has been negative patient afebrile she was on Rocephin and is discontinued today I will repeat WBC count tomorrow Current Visit: Yes Hospitalist: Subjective Interval history: Patient is more awake and alert able to communicate she was seen by speech therapy and approve this dysphagia diet which she has been tolerating. She is to have a leg movement but was able to sleep well last night Exam - Constitutional Vitals: Period Temp Pulse Resp BP Sys/Dawson Pulse Ox Last 24 Hr 96.3 F-98.4 F 60-121 18-24 105-121/51-71 93-99 General appearance: Awake in no distress. Conversative - Respiratory Respiratory exam: Present: clear to auscultation bilaterally. Absent: rales, rhonchi - Cardiovascular Cardiovascular exam: Present: Irregular rate and rhythm with tachycardia - GI/Abdominal GI/Abdominal exam: Present: normal bowel sounds, soft. Absent: distended, tenderness - Extremities Exam Extremities exam: Absent: edema - Neurological Exam Neurological exam: Oriented to person and place. Involuntary bilatreal leg movements unchanged from yesterday Results - Labs CBC & BMP: 07/08/17 06:33 07/08/17 06:33 Lab Results: I have reviewed the past 24 hour labs Specialty Discharge - Follow Up or Referrals Follow up with: Sharri HERMAN [Outside] - 08/08/17 9:20 am
--- NOTE | 2017-07-09 16:19 | Neurology Progress Note ---
Neurology - PN : Subjective Interval history: Seems to be doing about the same. No new problems reported. Still alert and awake and follow commands. Is still having lower extremity choreiform movements. [place] disease analysis is a still pending Exam (Progress Note) - Constitutional Vitals: Period Temp Pulse Resp BP Sys/Dawson Pulse Ox Last 24 Hr 96.1 F-97.7 F 60-121 18-24 105-121/51-71 93-98 Exam: GENERAL: Patient is in no acute distress. NECK: Neck is quite stiff. There is no JVD. No carotid bruits present. No thyroid masses. CVS: First and second heart sounds are normal. There is no S3 present. Regular rate and rhythm. RESPIRATORY: Lungs are clear to auscultation without any rales or rhonchi. ABDOMEN: Soft and non-tender. Bowel sounds are present. There is no hepatosplenomegaly. EXT: There is no palpable edema. Peripheral pulses are present. Skin: No rashes Central Nervous system: General: Alert and awake and following command Speech: Fluent and clear Comprehension: Fair Facial expressions: Normal Cranial Nerves: Pupils are equally reactive to light. Extraocular movements are intact. No facial asymmetry is seen Motor: Stiffness is much better in the arms and legs. Lower extremity involuntary movements are better Sensory: Cannot be assessed Reflexes: 1+ and symmetrical Cerebellar function: Cannot be assessed Toes: Upgoing bilaterally Gait: Cannot be assessed Results - Labs CBC & BMP: 07/08/17 06:33 07/08/17 06:33 Assessment and Plan (1) Mental status change Problem details: fever, leukocytosis and recent spine intervention are concerning for meningitis Status: Chronic Assessment and plan: This is much better today. Current Visit: No (2) Choreiform movements Status: Acute Assessment and plan: Change Zyprexa to 5 mg p.o. twice daily Current Visit: Yes Specialty Discharge - Follow Up or Referrals Follow up with: Sharri HERMAN [Outside] - 08/08/17 9:20 am
[2017-07-09] MEDS: OLANZapine 5 MG TABLET PO SCH (20:54)
[2017-07-09] MEDS: ATORVASTATIN 20 MG TABLET PO SCH (20:54)
[2017-07-10 06:12] LABS: Basophils # 0.1 10*3/uL (0.0-0.2); Eosinophils # 0.1 10*3/uL (0.0-0.87); Hematocrit 36.2 VOL% (35.7-47.0); Immature Granulocytes % 0.9 %; Immature Granulocytes Absolute 0.06 #; Lymphocytes # 1.7 10*3/uL (1.4-4.0); Lymphocytes % 23.6 % (21.3-54.2); Mean Corpuscular HGB Conc 33.1 GM/DL (32-36); Mean Corpuscular Hemoglobin 31 PG (27-34); Mean Corpuscular Volume 93.1 FL (87-102); Mean Platelet Volume 9.9 FL (9.6-12.0); Monocytes # 0.6 10*3/uL (0.11-0.8); Monocytes % 7.9 % (1.7-12.7); Neutrophils # 4.6 10*3/uL (1.4-7.4); Neutrophils % 65.6 % (38.7-73.9); Platelet Count 417 T/CUMM (130-400); Red Blood Count 3.89 MC/CUMM (3.8-5.5); Red Cell Distribution Width 14.3 % (9.3-17.3)
[2017-07-10] MEDS: ALBUTEROL/IPRATROPIUM 3 ML NEB RESP TX SCH ×3 (06:56→20:54)
[2017-07-10] MEDS: GABAPENTIN 50 MG/ML 30 ML/BOTTLE PO SCH ×3 (08:13→21:31)
[2017-07-10] MEDS: DILTIAZEM 30 MG TABLET PO SCH ×5 (08:13→21:30)
[2017-07-10] MEDS: PANTOPRAZOLE 40 MG TABLET PO SCH (08:13)
[2017-07-10] MEDS: METOPROLOL TARTRATE 50 MG TABLET PO SCH ×3 (08:13→21:31)
[2017-07-10] MEDS: OLANZapine 5 MG TABLET PO SCH ×3 (08:13→21:31)
[2017-07-10] MEDS: INSULIN REGULAR 100 UNIT/ML SUBCUT SCH ×4 (08:19→19:06)
--- NOTE | 2017-07-10 09:44 | Hospitalist Progress Note ---
Assessment and Plan (1) Altered mental status Status: Acute Assessment and plan: Significant improvement from admission time to baseline Current Visit: Yes (2) Movement disorder Status: Chronic Assessment and plan: Patient seem to have this chronic movement disorder and Dr. Treviño has evaluated and recommend to be seen by a movement disorder specialist at [facility]. She has appointment on 08/08/2017. Symptomatic improvement of Zyprexa. It will be continued Current Visit: Yes (3) Atrial fibrillation with RVR Status: Chronic Assessment and plan: Patient has history of paroxysmal A. fib. Has seen cardiology for rapid ventricular rhythm. On exam seemed to have a baseline regular rhythm today heart rate is in low 100s Metoprolol dose was increased to 50 mg twice daily recently. Seen by cardiology after admission has considered not to give anticoagulation due to frequent falls. In the past she had been on Xarelto Current Visit: Yes (4) Dysphagia Status: Acute Assessment and plan: Seen by the speech and patient on dysphagia diet and tolerating well Current Visit: Yes Qualifiers: Dysphagia type: unspecified Qualified Code(s): R13.10 - Dysphagia, unspecified (5) Leukocytosis Status: Acute Assessment and plan: Resolved Current Visit: Yes (6) Hypoxia Status: Acute Assessment and plan: Patient has required oxygen since admission and desat without it. She had a x- ray and and CT chest during the hospital day. She does not seem to be in any distress I will repeat chest x-ray Current Visit: Yes Hospitalist: Subjective Interval history: Patient again with a good night sleep and the able to eat and drink. No acute issues her leg movements present but again significantly improved from what she had at home as reported by the family member. She is back on oxygen and nasal cannula reported desat on oxygen monitor Exam - Constitutional Vitals: Period Temp Pulse Resp BP Sys/Dawson Pulse Ox Last 24 Hr 96.1 F-97.3 F 77-108 15-22 107-135/59-70 89-97 General appearance: Awake in no distress. - Respiratory Respiratory exam: Present: clear to auscultation bilaterally. Absent: rales, rhonchi - Cardiovascular Cardiovascular exam: Present: Regular rate and rhythm with mild tachycardia - GI/Abdominal GI/Abdominal exam: Present: normal bowel sounds, soft. Absent: distended, tenderness - Extremities Exam Extremities exam: Absent: edema - Neurological Exam Neurological exam: Oriented to person and place. Involuntary bilatreal leg movements unchanged from yesterday Results - Labs CBC & BMP: 07/10/17 04:54 07/08/17 06:33 Lab Results: I have reviewed the past 24 hour labs Specialty Discharge - Follow Up or Referrals Follow up with: Sharri HERMAN [Outside] - 08/08/17 9:20 am
[2017-07-10] MEDS: cefTRIAXone 2,000 MG in SODIUM CHLORIDE 0.9% 100 ML IV SCH (10:00)
--- NOTE | 2017-07-10 13:08 | XRay Report ---
Portable chest Date: 07/10/2017 Clinical history: Shortness of breath Comparison: 06/27/2017 Technique: Portable AP sitting chest Findings: The heart is borderline in size with uncoiling of the aorta. Chronic scarring in the lungs with minimally progressive parenchymal findings. Small densities in the right midlung zone. Intervascular bone cement with prior kyphoplasty. Osteopenia with degenerative changes. Impression: The heart is slightly larger in size with findings which can be seen with mild CHF/pneumonitis. Small indeterminate noncalcified densities in the right midlung zone and follow-up chest x-ray is recommended document clearing. Intervascular bone cement with prior kyphoplasty. PROCEDURE INTERPRETED AT [facility] DEPARTMENT OF RADIOLOGY Final Report Signed by: Dr. Cherelle Lin
[2017-07-10] MEDS: ATORVASTATIN 20 MG TABLET PO SCH ×2 (19:43→21:31)
[2017-07-11] MEDS: INSULIN REGULAR 100 UNIT/ML SUBCUT SCH ×3 (04:20→12:04)
[2017-07-11] MEDS: ALBUTEROL/IPRATROPIUM 3 ML NEB RESP TX SCH (07:34)
[2017-07-11] MEDS: PANTOPRAZOLE 40 MG TABLET PO SCH (09:45)
[2017-07-11] MEDS: OLANZapine 5 MG TABLET PO SCH (09:45)
[2017-07-11] MEDS: DILTIAZEM 30 MG TABLET PO SCH (09:45)
[2017-07-11] MEDS: METOPROLOL TARTRATE 50 MG TABLET PO SCH (09:46)
[2017-07-11] MEDS: GABAPENTIN 50 MG/ML 30 ML/BOTTLE PO SCH (09:46)
--- NOTE | 2017-07-11 11:37 | Discharge Summary ---
Hospital Course - Hospital Course Hospital Course: Ms. Ballesteros is a 76 year old female with PMHx of HTN, dementia, and GERD, who presented to the ED on 06/27/2017 with CC of fever and AMS. Pt had recorded a temperature of 103 F the previous night and the stated the pt's mental status was worse than her baseline. WBC is 17 and she had an epidural injection on Friday by Dr Lora. She was given vancomycin in ER and admitted to the ICU through the hospitalist services. IV fluids and a lactic acid with a stat spinal tap were ordered. Patient has restless leg syndrome but was displaying severe dyskinesia and constantly moving. Neurology was consulted. This appears to be EPS from excessive Seroquel. Spinal tap, blood cultures and MRSA screen all return no pathogens. Antibiotics were changed to Rocephin. Cardiology was consulted to assist with the patient's Afib with RVR. She was treated with IV Cardizem and beta blockade. IR placed an NG tube, cardizem was changed to PO and the patient was transferred to the floor on 07/02/2017. The patient did improve minimally, however an etiology for her mental status change could not be found despite use of amantadine and sinemet. Neurology recommends follow up with a movement disorder specialist at [facility]. Patient was started on Zyprexa with marked improvement in her mental status and choreiform movements. At this time, patient has reached maximum benefit from hospitalization and is stable for discharge. She should continue her Zyprexa at 5 mg PO BID. Patient and family have also been instructed to follow-up outpatient evaluation with a movement specialist at [facility]. - Time spent with patient Time with patient DS: Greater than 30 minutes (Total discharge time including disharge summary, orders, medicine reconciliation and instructions 40 min) Specialty Discharge - Follow Up or Referrals Follow up with: Sharri HERMAN [Outside] - 08/08/17 9:20 am (YOUR APPOINMENT IS WITH DR. VENTURA ----IN [facility]. THEY WILL MAIL YOU A PACKAGE TO FILL OUT AND SEND BACK BEFORE YOUR APPOINMENT.) Discharge Plan - Discharge Medications No Action Metoprolol Tartrate 25 mg PO DAILY Atorvastatin [Lipitor] 20 mg PO DAILY Omeprazole 1 tablet PO DAILY Quetiapine Fumarate [Seroquel] 50 mg PO DAILY Loratadine Tab [Claritin Tab] 10 mg PO DAILY Lisinopril 5 mg PO DAILY Gabapentin Cap/Tab [Neurontin Cap/Tab] 400 mg PO TID Donepezil [Aricept] 10 mg PO DAILY Oxybutynin Chloride [Oxybutynin Chloride ER] 15 mg PO DAILY Zaleplon [Sonata] 5 mg PO BEDTIME PRN #30 capsule PRN Reason: Sleep - Follow Up or Referral Follow Up: [facility] [Outside] - 08/08/17 9:20 am (YOUR APPOINMENT IS WITH DR. VENTURA ----IN [facility]. THEY WILL MAIL YOU A PACKAGE TO FILL OUT AND SEND BACK BEFORE YOUR APPOINMENT.) - Forms/Instructions Exam - Constitutional Vitals: Period Temp Pulse Resp BP Sys/Dawson Pulse Ox Last 24 Hr 97.1 F-98.4 F 77-116 15-22 93-121/63-69 90-99 Discharge Results Procedures and tests throughout hospitalization: Pending Orders 06/27/17 16:15 Katherine-Min Virus PCR Stat HSV PCR Other Sources Stat Varicella-Zoster Virus, PCR Stat Viral Culture, Non-Respiratory Stat West Nile Virus Ab (IgG/M),CSF Stat 06/27/17 16:46 Fungal Culture w/ Prep Stat 07/07/17 09:36 [place] Disease Analysis Routine Labs on day of discharge: Labs from last 24 hours 07/11/17 07/11/17 07/10/17 06:09 00:53 18:11 POC Glucose 100 110 H 196 H 07/10/17 11:22 POC Glucose 91 Preliminary micro results at discharge 06/27/17 16:46 Fungal Culture - Preliminary Cerebral Spinal Fluid No Fungus isolated at 2 weeks DS: Provider Date of admission: 06/27/17 15:17 Primary care physician: Vern Francis MD Attending physician on admission: Sandra Jaime MD Consults: 06/27/17 16:01 Consult to Physician [CONS] Routine Comment: meningitis Consulting Provider: Kai Treviño Person Notified: Dr. Treviño Date Notified: 06/27/17 Time Notified: 17:46 Consult Notification Comment: Given lab result from [facility], new labs ordered. Will see pt in AM. 06/27/17 18:47 Consult to Pharmacy [CONS] Routine Reason for Pharmacy Consult: Dose/Manage Vancomycin Dose/Manage Antibiotics 06/30/17 14:18 Consult to Physician [CONS] Routine Comment: Consulting Provider: Christi Rogers When should Consulting Provider be notified: Now Consult Notification Comment: [id number] called [facility] office, no answer. notified Mariely Smith of new consult. 07/01/17 10:17 Consult to Dietitian [CONS] Routine Reason for Dietitian: TF-Initiate/Manage 07/03/17 08:15 Consult to Case Mgmt/Social Srvs [CONS] Routine Reason for Case Mgmt/Social Srvs: Discharge Planning 07/09/17 09:52 Consult to Case Mgmt/Social Srvs [CONS] Routine Reason for Case Mgmt/Social Srvs: Swingbed/SNF/Halfway Consult to Occupational Therapy [CONS] Routine Reason for Occupational Therapy: Evaluate and Treat Consult to Physical Therapy [CONS] Routine Reason for Physical Therapy: Evaluate and Treat 07/11/17 09:46 Consult to Case Mgmt/Social Srvs [CONS] Routine Reason for Case Mgmt/Social Srvs: Home Health Consult Comment: Home Health at discharge Discharging clinician: Antoni ROLON Expected date of discharge: 07/11/17
--- NOTE | 2017-07-11 11:47 | Discharge Summary ---
Hospital Course - Hospital Course Hospital Course: Ms. Ballesteros is a 76 year old female with PMHx of HTN, dementia, and GERD, who presented to the ED on 06/27/2017 with CC of fever and AMS. Pt had recorded a temperature of 103 F the previous night and the stated the pt's mental status was worse than her baseline. WBC is 17 and she had an epidural injection on Friday by Dr Lora. She was given vancomycin in ER and admitted to the ICU through the hospitalist services. IV fluids and a lactic acid with a stat spinal tap were ordered. Patient has restless leg syndrome but was displaying severe dyskinesia and constantly moving. Neurology was consulted. This appears to be EPS from excessive Seroquel. Spinal tap, blood cultures and MRSA screen all return no pathogens. Antibiotics were changed to Rocephin. Cardiology was consulted to assist with the patient's Afib with RVR. She was treated with IV Cardizem and beta blockade. IR placed an NG tube, cardizem was changed to PO and the patient was transferred to the floor on 07/02/2017. The patient did improve minimally, however an etiology for her mental status change could not be found despite use of amantadine and sinemet. Neurology recommends follow up with a movement disorder specialist at [facility]. Patient was started on Zyprexa with marked improvement in her mental status and choreiform movements. At this time, patient has reached maximum benefit from hospitalization and is stable for discharge. She should continue her Zyprexa at 5 mg PO BID. Patient and family have also been instructed to follow-up outpatient evaluation with a movement specialist at [facility]. Specialty Discharge - Follow Up or Referrals Follow up with: Sharri HERMAN [Outside] - 08/08/17 9:20 am (YOUR APPOINMENT IS WITH DR. VENTURA ----IN [facility]. THEY WILL MAIL YOU A PACKAGE TO FILL OUT AND SEND BACK BEFORE YOUR APPOINMENT.) Discharge Plan - Discharge Data Disposition: Home Health Service Condition at Discharge: Stable Discharge Diet: heart healthy Activity: increase activity as tolerated Hygiene: may tub bathe, other (Will need assistance 02/06) Weight Bearing at Discharge: other (Weightbearing with assistance) Driving: other (No driving expect) Contact your physician if you experience:: fever over 101, Difficulty voiding, Nausea/Vomiting, Shortness of breath, pain uncontrolled by pain medications - Discharge Medications New Carbidopa/Levodopa 25-100 [Sinemet 25-100] 1 tablet PO TID #90 tablet Continue Metoprolol Tartrate 25 mg PO DAILY Atorvastatin [Lipitor] 20 mg PO DAILY Omeprazole 1 tablet PO DAILY Loratadine Tab [Claritin Tab] 10 mg PO DAILY Lisinopril 5 mg PO DAILY Gabapentin Cap/Tab [Neurontin Cap/Tab] 400 mg PO TID Donepezil [Aricept] 10 mg PO DAILY Oxybutynin Chloride [Oxybutynin Chloride ER] 15 mg PO DAILY Zaleplon [Sonata] 5 mg PO BEDTIME PRN #30 capsule PRN Reason: Sleep Discontinued Quetiapine Fumarate [Seroquel] 50 mg PO DAILY - Follow Up or Referral Follow Up: Sharri HERMAN [Outside] - 08/08/17 9:20 am (YOUR APPOINMENT IS WITH DR. VENTURA ----[facility]. 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)) - Head Head exam: Present: normocephalic, atraumatic - Eye Eye exam: Present: EOMI Pupils: Present: ARIELLE - Neck Neck exam: Present: normal inspection - Respiratory Respiratory exam: Present: clear to auscultation bilaterally - Cardiovascular Cardiovascular exam: Present: regular rate and rhythm - GI/Abdominal GI/Abdominal exam: Present: normal bowel sounds, soft - Extremities Exam Extremities exam: Present: other (Quite a dystonic and moving about.) - Neurological Exam Neurological exam: Present: other (Unable to assist with executive) - Psychiatric Psychiatric exam: Present: other (History of dementia) - Skin Skin exam: Present: normal color, warm, dry Discharge Results Procedures and tests throughout hospitalization: Pending Orders 06/27/17 16:15 Katherine-Min Virus PCR Stat HSV PCR Other Sources Stat Varicella-Zoster Virus, PCR Stat Viral Culture, Non-Respiratory Stat West Nile Virus Ab (IgG/M),CSF Stat 06/27/17 16:46 Fungal Culture w/ Prep Stat 07/07/17 09:36 [place] Disease Analysis Routine Labs on day of discharge: Labs from last 24 hours 07/11/17 07/11/17 07/10/17 06:09 00:53 18:11 POC Glucose 100 110 H 196 H 07/10/17 11:22 POC Glucose 91 Preliminary micro results at discharge 06/27/17 16:46 Fungal Culture - Preliminary Cerebral Spinal Fluid No Fungus isolated at 2 weeks DS: Provider Date of admission: 06/27/17 15:17 Primary care physician: Vern Francis MD Attending physician on admission: Sandra Jaime MD Consults: 06/27/17 16:01 Consult to Physician [CONS] Routine Comment: meningitis Consulting Provider: Kai Treviño Person Notified: Dr. Treviño Date Notified: 06/27/17 Time Notified: 17:46 Consult Notification Comment: Given lab result from LP, new labs ordered. Will see pt in AM. 06/27/17 18:47 Consult to Pharmacy [CONS] Routine Reason for Pharmacy Consult: Dose/Manage Vancomycin Dose/Manage Antibiotics 06/30/17 14:18 Consult to Physician [CONS] Routine Comment: Consulting Provider: Christi Rogers When should Consulting Provider be notified: Now Consult Notification Comment: 1423 called [facility] office, no answer. notified Mariely Smith of new consult. 07/01/17 10:17 Consult to Dietitian [CONS] Routine Reason for Dietitian: TF-Initiate/Manage 07/03/17 08:15 Consult to Case Mgmt/Social Srvs [CONS] Routine Reason for Case Mgmt/Social Srvs: Discharge Planning 07/09/17 09:52 Consult to Case Mgmt/Social Srvs [CONS] Routine Reason for Case Mgmt/Social Srvs: Swingbed/SNF/Fdc Consult to Occupational Therapy [CONS] Routine Reason for Occupational Therapy: Evaluate and Treat Consult to Physical Therapy [CONS] Routine Reason for Physical Therapy: Evaluate and Treat 07/11/17 09:46 Consult to Case Mgmt/Social Srvs [CONS] Routine Reason for Case Mgmt/Social Srvs: Home Health Consult Comment: Home Health at discharge Discharging clinician: Woo Gates MD
[2017-07-11 11:57] VITALS: BP 90/58
[2017-07-21 13:20] LABS: Result SEE COMMENTS; Result Summary NEGATIVE; Specimen WB Whole Blood
--- NOTE | 2017-07-22 08:22 | Physician Query Form ---
CLICK EDIT DOCUMENT TO SELECT QUERY ANSWER --> OK --> SIGN Cristine Strange RN, CCDS Certified Clinical Carpet Winder W) [phone] (f) [phone] [email or web address] PROVIDERS: Make your selection(s) from the choices in EACH section by typing an "x" and enter comments in the comment section. Please use your independent medical judgment in providing your response. This request does not imply that any particular answer is desired or expected. CLINICAL INDICATORS: (Providers should not edit this section) The medical record indicates that the patient was admitted with AMS, WBC 17.5#, Lactic Acid increased from 1.2# to 2.2# on the 18th, Temp 101.9 on the 18th, pulse increased from 68---166, respirations increased from 16--32 and the patient was later increased from 2 liters per NC to six liters per Venturi Mask. Please clarify which, if any, of the following is the etiology of the above symptoms and treatment rendered: ( ) Sepsis due to a localized infection, please specify infection: ( ) Severe Sepsis (sepsis with acute organ failure) - Please specify type acute organ failure: ( ) Septic Shock (severe sepsis with hypotension) ( ) SIRS of noninfectious origin ( ) Sepsis due to a device, implant or graft, please specify: ( ) Localized infection only, without systemic illness, please specify infection : ( ) Bacteremia (abnormal lab finding only, does not indicate systemic illness) ( ) Other condition, please specify: ( ) Clinically unable to determine Criteria for Sepsis (SIRS due to an infection) should be based on 2 or more of the following being present: Temperature > 101F or < 96.8F WBC > 12,000 or < 4,000, or > 10% bands Tachycardia HR > 90 beats/minute Tachypnea RR > 20 breaths/minute or PaCO2 > 32mmHg Lactate level > 2.0 mmol/L (>4 is equivalent to severe sepsis) Altered Mental Status Mottling of skin or prolonged capillary refill Non-diabetic hyperglycemia (blood sugar >120 mg/dl) Other evidence of acute organ failure associated with sepsis ( severe sepsis) COMMENTS: PLEASE ALSO DOCUMENT RESPONSE IN PROGRESS NOTES AND/OR DISCHARGE SUMMARY Use of terms such as suspected, likely, or probable (associated with a specific diagnosis that is being evaluated, monitored, or treated as if it exists) are acceptable and can be restated in the discharge summary if not ruled out. MTDD
--- NOTE | 2017-07-28 07:17 | Physician Query Form ---
CLICK EDIT DOCUMENT TO SELECT QUERY ANSWER --> OK --> SIGN Cristine Strange RN, CCDS Certified Clinical Hog Feeder W) [phone] (f) [phone] [email or web address]: Make your selection(s) from the choices in EACH section by typing an "x" and enter comments in the comment section. Please use your independent medical judgment in providing your response. This request does not imply that any particular answer is desired or expected. CLINICAL INDICATORS: (Providers should not edit this section) The medical record indicates that the patient was admitted with AMS, WBC 17.5#, Lactic Acid increased from 1.2# to 2.2# on the 18th, Temp 101.9 on the 18th, pulse increased from 68---166, respirations increased from 16--32 and the patient was later increased from 2 liters per NC to six liters per Venturi Mask. Please clarify which, if any, of the following is the etiology of the above symptoms and treatment rendered: ( ) Sepsis due to a localized infection, please specify infection: (x ) Severe Sepsis (sepsis with acute organ failure) - Please specify type acute organ failure: ( ) Septic Shock (severe sepsis with hypotension) ( ) SIRS of noninfectious origin ( ) Sepsis due to a device, implant or graft, please specify: ( ) Localized infection only, without systemic illness, please specify infection : ( ) Bacteremia (abnormal lab finding only, does not indicate systemic illness) ( ) Other condition, please specify: ( ) Clinically unable to determine Criteria for Sepsis (SIRS due to an infection) should be based on 2 or more of the following being present: Temperature > 101F or < 96.8F WBC > 12,000 or < 4,000, or > 10% bands Tachycardia HR > 90 beats/minute Tachypnea RR > 20 breaths/minute or PaCO2 > 32mmHg Lactate level > 2.0 mmol/L (>4 is equivalent to severe sepsis) Altered Mental Status Mottling of skin or prolonged capillary refill Non-diabetic hyperglycemia (blood sugar >120 mg/dl) Other evidence of acute organ failure associated with sepsis ( severe sepsis) COMMENTS: PLEASE ALSO DOCUMENT RESPONSE IN PROGRESS NOTES AND/OR DISCHARGE SUMMARY Use of terms such as suspected, likely, or probable (associated with a specific diagnosis that is being evaluated, monitored, or treated as if it exists) are acceptable and can be restated in the discharge summary if not ruled out. MTDD
== END 2017-07-11 14:30 | disposition home health service (06) | DRG 871 ==
LOC: N.ED 10:23 → N.EDINP 15:17 → SUATTDRO 15:17 → N.CC 17:20 → N.2E 07-02 19:06
PROVIDERS: ADMIT Internal Medicine; ATTEND Internal Medicine Infectious Disease

== ENCOUNTER 2018-08-09 12:01 | Inpatient (IN) ==
[2018-08-09] MEDS ORDERED: SODIUM CHLORIDE 0.9% 1,000 ML IV STA (13:10)
[2018-08-09 13:26] LABS: Basophils # 0.1 10*3/uL (0.0-0.2); Basophils % 0.7 % (0.0-0.8); Eosinophils # 0.2 10*3/uL (0.0-0.87); Eosinophils % 1.6 % (0.00-10.9); Hematocrit 43.3 VOL% (35.7-47.0); Hemoglobin 14.3 GM/DL (12.0-16.0); Immature Granulocytes % 0.3 %; Immature Granulocytes Absolute 0.03 #; Lymphocytes # 1.7 10*3/uL (1.4-4.0); Lymphocytes % 18.2 % (21.3-54.2); Mean Corpuscular Hemoglobin 31 PG (27-34); Mean Corpuscular Volume 93.5 FL (87-102); Mean Platelet Volume 10.3 FL (9.6-12.0); Monocytes # 0.6 10*3/uL (0.11-0.8); Neutrophils # 6.9 10*3/uL (1.4-7.4); Neutrophils % 73.2 % (38.7-73.9); Platelet Count 241 T/CUMM (130-400); Red Blood Count 4.63 MC/CUMM (3.8-5.5); Red Cell Distribution Width 14.2 % (9.3-17.3); White Blood Count 9.4 T/CUMM (4-12)
[2018-08-09 13:46] LABS: Albumin 3.2 G/DL (3.4-5.0); Bilirubin,Total 0.9 MG/DL (0.2-1.0); Calcium 8.8 MG/DL (8.5-10.1); Osmolality,Calculated 283.1 MOS/KG (273-304); Potassium 4.3 MMOL/L (3.5-5.1); Thyroid Stimulating Hormone 2.46 uIU/ml (0.358-3.74)
[2018-08-09 14:03] LABS: Apearance,Urine CLEAR (Clear); Bilirubin,Urine Negative (Negative); Blood, Urine Negative (Negative); Glucose,Urine (UA) Negative (Negative); Ketones,Urine Negative (Negative); Nitrite,Urine Negative (Negative); Protein,Urine Negative; RBC,Urine <1 /HPF (0-4); Squamous Epithelial Cell,Urine Occasional /HPF (0-10); Urine Color Yellow (Yellow); Urine Specific Gravity 1.017 (1.001-1.035); WBC,Urine 3 /HPF (0-6)
[2018-08-09] MEDS: SODIUM CHLORIDE 0.9% 1,000 ML IV SCH (16:22)
[2018-08-09] MEDS ORDERED: ONDANSETRON 4 MG/2 ML VIAL IV PRN (16:30)
[2018-08-09] MEDS ORDERED: HALOPERIDOL 5 MG/ML AMP IV PRN (20:54)
[2018-08-10] MEDS: SODIUM CHLORIDE 0.9% 1,000 ML IV SCH ×3 (02:40→15:28)
[2018-08-10 05:21] LABS: Basophils # 0.1 10*3/uL (0.0-0.2); Basophils % 1.2 % (0.0-0.8); Eosinophils # 0.2 10*3/uL (0.0-0.87); Eosinophils % 3.9 % (0.00-10.9); Hematocrit 40.1 VOL% (35.7-47.0); Hemoglobin 13.4 GM/DL (12.0-16.0); Immature Granulocytes % 0.2 %; Immature Granulocytes Absolute 0.01 #; Lymphocytes # 1.6 10*3/uL (1.4-4.0); Lymphocytes % 32.9 % (21.3-54.2); Mean Corpuscular HGB Conc 33.4 GM/DL (32-36); Mean Corpuscular Hemoglobin 30 PG (27-34); Mean Corpuscular Volume 90.3 FL (87-102); Mean Platelet Volume 9.8 FL (9.6-12.0); Monocytes # 0.5 10*3/uL (0.11-0.8); Monocytes % 9.5 % (1.7-12.7); Neutrophils # 2.5 10*3/uL (1.4-7.4); Neutrophils % 52.3 % (38.7-73.9); Platelet Count 225 T/CUMM (130-400); Red Blood Count 4.44 MC/CUMM (3.8-5.5); Red Cell Distribution Width 13.8 % (9.3-17.3); White Blood Count 4.9 T/CUMM (4-12)
[2018-08-10 05:52] LABS: Calcium 8.3 MG/DL (8.5-10.1); Osmolality,Calculated 281.1 MOS/KG (273-304)
[2018-08-10] MEDS ORDERED: ZALEPLON 5 MG CAPSULE PO PRN (18:09)
[2018-08-10] MEDS: GABAPENTIN 400 MG CAPSULE PO SCH (20:23)
[2018-08-10] MEDS ORDERED: QUEtiapine 100 MG TABLET PO SCH (21:00)
[2018-08-11] MEDS: SODIUM CHLORIDE 0.9% 1,000 ML IV SCH ×2 (01:10→08:45)
[2018-08-11] MEDS: GABAPENTIN 400 MG CAPSULE PO SCH ×2 (08:35→15:28)
[2018-08-11] MEDS ORDERED: PANTOPRAZOLE 40 MG TABLET PO SCH (09:00)
[2018-08-11] MEDS ORDERED: OXYBUTYNIN XL 15 MG TABLET PO SCH (09:00)
[2018-08-11] MEDS ORDERED: LORATADINE 10 MG TABLET PO SCH (09:00)
[2018-08-11 11:18] VITALS: BP 143/94
== END 2018-08-11 17:45 | disposition hospice, home (50) | DRG 56 ==
LOC: EDUNIT# → EDBD → N.ED 12:01 → SUATTDRO 17:10 → N.EDINP 17:10 → N.3E 18:25
PROVIDERS: ADMIT Hospitalist; ATTEND Internal Medicine Geriatric Medicine